=== PATIENT | female | born 1985 | race Caucasian/White ===

== ENCOUNTER 2019-05-30 15:54 | Observation (INO) | payer OTHER, SELFPAY ==
[2019-05-30 15:47] VITALS: BP 111/63; PULSE 84; RESP 18; TEMP 37.3; O2SAT 100
--- NOTE | 2019-05-30 16:15 | OBADM ---
This patient, Sahara Guevara, admitted to the OB room 116 at 1554 per wheelchair from ED for observation for c/o cramping. Patient/family oriented to hospital policies and general routines including ID bracelet, bed and alarms, visiting hours, pain management, procedures, bathroom and other care routines, personal items, smoking policy, room service/diet, and visiting hours. Patient/Family are encouraged to report perceived risks to care and to ask questions if they do not understand what they are told or what they should do.
[2019-05-30 16:44] LABS: Add Urine Microscopic? YES; Appearance Urine Clear (Clear); Bacteria Urine Trace /hpf; Bilirubin Urine Negative (Negative); Blood Urine Negative (Negative); Calcium Oxalate Crystals Urine Present /hpf; Color Urine Yellow (Yellow); Glucose Urine UA Negative (Negative); Ketones Urine Negative (Negative); Leukocyte Esterase Ur Negative LEU/UL (Negative); Mucus Urine Few /lpf; Nitrate Urine Negative (Negative); Protein Urine 1+ mg/dL (Negative); RBC Urine 0-2 /hpf (0-2); Specific Grav Ur 1.024 (1.001-1.035); Squamous Epithelial Cell Urine Few /hpf (Few)
[2019-05-30 16:56] VITALS: BMI 26.5
--- NOTE | 2019-06-07 13:42 | P.PNOB_ITS ---
OB - Triage/Final Diagnosis Evaluation Laboratory results: Laboratory Tests 05/30/19 16:26 Urine Color Yellow Urine Appearance Clear Urine pH 6.0 Ur Specific [place] 1.024 Urine Protein 1+ H Urine Glucose (UA) Negative Urine Ketones Negative Ur Blood (Man) Negative Urine Nitrate Negative Urine Bilirubin Negative Urine Urobilinogen 2.0 H Leukocyte Esterase Rfl Negative Urine RBC 0-2 Urine WBC 10-15 H Ur Squamous Epith Cells Few Calcium Oxalate Crystal Present Urine Bacteria Trace Urine Mucus Few H Final Diagnosis (1) False labor: Code(s): O47.9 - False labor, unspecified Status: Acute
== END 2019-05-30 17:58 | disposition home or self-care (01) ==
PROVIDERS: Admitting Provider Obstetrics & Gynecology; Visit Provider Obstetrics & Gynecology
DX: O47.02 False labor before 37 completed weeks of gestation, second trimester (principal); Z3A.18 18 weeks gestation of pregnancy
CPT/HCPCS: 81001; 87086; 87088; G0378; G0379

== ENCOUNTER 2019-10-09 02:10 | Outpatient (CLI) | payer OTHER, SELFPAY ==
[2019-10-09 03:01] VITALS: BP 98/61; PULSE 81
--- NOTE | 2019-10-09 07:18 | PM.OBTRLD ---
OB - Triage/Final Diagnosis Visit Information Date of evaluation: 10/09/19 Reason for evaluation: threatened labor Evaluation Vital signs: Vital Signs - 24 hr 10/09/19 03:01 Pulse Rate 81 Blood Pressure [Right Arm] 98/61 L
== END 2019-10-09 03:15 | disposition home or self-care (01) ==
LOC: ANHOBOP 02:57 → ANHLDR 08:52
PROVIDERS: PCP Family Medicine; Visit Provider Student in an Organized Health Care Education/Training Program
DX: O42.90 Premature rupture of membranes, unspecified as to length of time between rupture and onset of labor, unspecified weeks of gestation (principal); Z3A.00 Weeks of gestation of pregnancy not specified
CPT/HCPCS: 59025; 99199

== ENCOUNTER 2019-10-16 | Inpatient (IN) | payer OTHER, SELFPAY ==
--- NOTE | 2019-09-18 15:02 | PC.NURSE ---
PATIENT STATES SHE HAS A BICORNATE UTERUS AND BABY IS TRANSVERSE PATIENT STATES DR ONTIVEROS PLANS TO BRING HER IN AT 39 WKS TO ATTEMPT EXTERNAL VERSION ,IF IT WORKS WILL BE INDUCED,IF IT DOES NOT WORK WILL BE A C/S ON THE DAY OF THE EXTERNAL VERSION
[2019-10-16] VITALS (89 sets, daily range): BP systolic 80–116; BP diastolic 35–84; PULSE 63–191; RESP 16–20; TEMP 36.3–37.3; O2SAT 92–100; BMI 31.0
--- NOTE | 2019-10-16 00:53 | LDADM ---
This patient, Sahara Guevara, was admitted to Labor/Delivery/Recovery 109 on 10/16/19 at 00:00. Plans for labor, pain management and were discussed with patient. Patient/family oriented to hospital policies and general routines including ID bracelet, bed and alarms, visiting hours, pain management, procedures, bathroom and other care routines, personal items, smoking policy, room service/diet and guest tray routines, infant security routines, and visiting hours. Patient/Family are encouraged to report perceived risks to care and to ask questions if they do not understand what they are told or what they should do. See OBIX for further documentation.
[2019-10-16 01:34] LABS: Basophils Percent Auto 0.3 % (0.2-1.2); Eosinophils Absolute Auto 0.1 K/mm3 (0-0.3); Eosinophils Percent Auto 0.7 % (0-4.4); Hemoglobin 9.5 g/dL (12.0-15.0); Immature Granulocyte Absolute 0.07 K/mm3 (0.00-0.031); Immature Granulocyte Percent A 0.7 % (0-0.5); Lymphocytes Absolute Auto 1.77 K/mm3 (0.9-3.2); Lymphocytes Percent Auto 18.5 % (18.3-44.2); Mean Corpuscular HGB Conc 32.8 g/dl (32-36); Mean Corpuscular Volume 88.4 fl (80-100); Mean Platelet Volume 10.5 fl (7.4-10.4); Monocytes Absolute Auto 0.8 K/mm3 (0.1-0.6); Monocytes Percent Auto 8.7 % (2.6-8.5); Neutrophils Absolute Auto 6.8 K/mm3 (1.3-6.7); Neutrophils Percent Auto 71.1 % (45.5-73.1); Platelet Count Result 292 k/mm3 (150-375); Red Blood Count 3.28 M/mm3 (4.2-5.4); Red Cell Distribution Width 13.8 % (11.5-14.5); White Blood Count 9.6 K/mm3 (4.5-10.0)
[2019-10-16] MEDS: miSOPROStol 25 MCG TABLET VAGINAL ×2 (01:42→06:32)
--- NOTE | 2019-10-16 07:20 | P.PNAN_ITS ---
Anes - Eval Pre Procedure Procedure: labor epidural Date/Time: 10/16/19 07:20 Preop Diagnosis: labor pain Pre Op Diagnosis: Induction of Labor Patient Data Age: 33 Gender: F Height: 5 ft 5.5 in Weight: 86 kg Last Vital Signs Temp 37.1 C 10/16/19 06:27 Pulse 71 10/16/19 07:15 BP 99/65 L 10/16/19 07:15 Allergies Allergy/AdvReac Type Severity Reaction Status Date / Time No Known Allergies Allergy Verified 10/16/19 01:34 Home Medications Medication Instructions Recorded Confirmed Type PNV cmb#95-ferrous fumarate-FA 1 tablet PO DAILY 05/30/19 10/16/19 History [] Laboratory Tests 10/16/19 10/16/19 10/16/19 01:27 01:27 01:27 WBC 9.6 K/mm3 K/mm3 (4.5-10.0) RBC 3.28 M/mm3 L M/mm3 (4.2-5.4) Hgb 9.5 g/dL L D g/dL (12.0-15.0) Hct 29.0 % L % (37.0-47.0) MCV 88.4 fl fl (80-100) MCH 29.0 pg pg (26-34) MCHC 32.8 g/dl g/dl (32-36) RDW 13.8 % % (11.5-14.5) Plt Count 292 k/mm3 k/mm3 (150-375) MPV 10.5 fl H fl (7.4-10.4) Immature Gran % (Auto) 0.7 % H % (0-0.5) Neut % (Auto) 71.1 % % (45.5-73.1) Lymph % (Auto) 18.5 % % (18.3-44.2) [place] % (Auto) 8.7 % H % (2.6-8.5) Eos % (Auto) 0.7 % % (0-4.4) Baso % (Auto) 0.3 % % (0.2-1.2) Lymph # (Auto) 1.77 K/mm3 K/mm3 (0.9-3.2) [place] # (Auto) 0.8 K/mm3 H K/mm3 (0.1-0.6) Eos # (Auto) 0.1 K/mm3 K/mm3 (0-0.3) Baso # (Auto) 0.0 K/mm3 K/mm3 (0.0-0.1) Abs Immat Gran (auto) 0.07 K/mm3 H K/mm3 (0.00-0.031) Absolute Neuts (auto) 6.8 K/mm3 H K/mm3 (1.3-6.7) Absolute Nucleated RBC 0.0 K/mm3 K/mm3 (0.0-0.012) Nucleated RBC % 0.0 % % (0.0-0.2) RPR Pending Blood Type O Positive Antibody Screen Negative Patient hx anesthesia problems: none Family hx anesthesia problems: none PMFSH Past Medical History Medical History (Updated 06/07/19 @ 13:43 by Augustin Acosta MD) Anxiety Depression Endometriosis History of ectopic Hx of migraines Surgical History Surgical History (Updated 02/23/19 @ 21:39 by Ozzie Angel) No history of previous surgery Family History Family History (Updated 09/18/19 @ 14:35 by Michelle De La O RN) Father Chronic obstructive pulmonary disease Social History Social History Smoking status: Never smoker Substance use: never Gender identity (if verbalized by the patient): Female Spiritual care concerns: No Exam Day of Procedure 10/16/19 07:20
--- NOTE | 2019-10-16 09:10 | PM.IMHP ---
H&P: HPI History of Present Illness Date/Time: 10/16/19 09:10 Chief complaint: Induction of Labor Narrative: 33 y/o at 39 weeks with a bicornuate uterus. Baby was vertex last week, so an induction was scheduled for 39 weeks. However, the patient says the baby doesn't feel vertex anymore. GBS neg. otherwise uncomplicated. Review of Systems Review of Systems: All systems reviewed & are unremarkable except as noted in HPI and below PMFSH Past Medical History Medical History (Updated 10/16/19 @ 09:13 by Augustin Acosta MD) Anxiety Depression Endometriosis History of ectopic Hx of migraines Surgical History Surgical History No history of previous surgery Family History Family History Father Chronic obstructive pulmonary disease Social History Social History Smoking status: Never smoker Substance use: never Gender identity (if verbalized by the patient): Female Spiritual care concerns: No Meds Home Medications and Allergies Home Medications Medication Instructions Recorded Confirmed Type PNV cmb#95-ferrous fumarate-FA 1 tablet PO DAILY 05/30/19 10/16/19 History [] Allergies Allergy/AdvReac Type Severity Reaction Status Date / Time No Known Allergies Allergy Verified 10/16/19 01:34 Vital Signs Vital Signs - 24 hr 10/16/19 01:42 10/16/19 01:45 10/16/19 02:00 Temperature 37.1 C Pulse Rate 76 75 78 Blood Pressure 108/66 101/64 98/65 L 10/16/19 03:00 10/16/19 04:00 10/16/19 06:27 Temperature 37.1 C Pulse Rate 80 100 88 Blood Pressure 100/62 116/64 103/53 L 10/16/19 06:45 10/16/19 07:00 10/16/19 07:15 Temperature Pulse Rate 87 73 71 Blood Pressure 100/70 99/65 L 99/65 L 10/16/19 07:30 10/16/19 07:45 10/16/19 08:00 Temperature Pulse Rate 72 76 79 Blood Pressure 105/63 105/69 91/58 L 10/16/19 08:15 10/16/19 08:31 10/16/19 09:00 Temperature Pulse Rate 80 88 79 Blood Pressure 108/64 96/76 L 110/75 10/16/19 09:03 Temperature 36.6 C Pulse Rate Blood Pressure Exam Const: Orientation/consciousness: patient oriented x3 Other: Well-developed, well-nourished female in no acute distress. Neck: Thyroid: thyroid normal Lymphatic: no lymphadenopathy noted (in neck, axilla or inguinal nodes) Resp: Effort & Inspection: normal respiratory effort Auscultation: clear to auscultation bilaterally Cardio: Rate: regular rate Rhythm: regular rhythm Heart sounds: S1 normal heart sound present and S2 normal heart sound present GI: Other: ABD: Soft, nontender, nondistended. Gravid. NST reactive. [place]: irregular contractions. Bedside ultrasound shows nonvertex presentation. Ryan breech vs oblique presentation. : General: Yes no CVA tenderness Other: Cervix closed per RN exam. Back/Spine/Pelvis: Back: no CVA tenderness Skin: General skin exam: normal color and no rashes or lesions noted Neuro: General: patient oriented x3 Extrem: Other: Extremities: nontender with no edema Psych: Mental Status: mental status grossly normal Affect: normal affect H&P: Results Labs Labs: Short CBC 10/16/19 Range/Units 01:27 WBC 9.6 (4.5-10.0) K/mm3 Hgb 9.5 L D (12.0-15.0) g/dL Hct 29.0 L (37.0-47.0) % Plt Count 292 (150-375) k/mm3 Assessment and Plan Assessment and plan (1) Breech presentation: Code(s): O32.1XX0 - Maternal care for breech presentation, not applicable or unspecified Status: Acute Assessment and Plan: A: IUP at 39 weeks. Breech presentation Bicornuate uterus P: I offered her expectant management versus primary . She understands risks of surgery to include risks of anesthesia, risks of pain, infection, bleeding, blood products, thromboembolic phenomena and damage to adjacent
[2019-10-16 09:51] LABS: Rapid Plasma Reagin Non-Reactive (NonReactive)
--- NOTE | 2019-10-16 10:01 | WPDANESEPPF ---
Anes - Initial Pre Proc Eval Procedure: Operation Date: 10/16/19 12:00 Proposed Procedures p Section - Huseyin Naranjo MD Date/Time: 10/16/19 10:01 Surgeon: Huseyin Naranjo MD Pre Op Diagnosis: Induction of Labor Patient Data Age: 33 Gender: F Height: 1.66 m Weight: 86 kg Last Vital Signs Temp 36.6 C 10/16/19 09:03 Pulse 79 10/16/19 09:00 BP 110/75 10/16/19 09:00 Allergies Allergy/AdvReac Type Severity Reaction Status Date / Time No Known Allergies Allergy Verified 10/16/19 01:34 Home Medications Medication Instructions Recorded Confirmed Type PNV cmb#95-ferrous fumarate-FA 1 tablet PO DAILY 05/30/19 10/16/19 History [] Laboratory Tests 10/16/19 10/16/19 10/16/19 01:27 01:27 01:27 WBC 9.6 K/mm3 K/mm3 (4.5-10.0) RBC 3.28 M/mm3 L M/mm3 (4.2-5.4) Hgb 9.5 g/dL L D g/dL (12.0-15.0) Hct 29.0 % L % (37.0-47.0) MCV 88.4 fl fl (80-100) MCH 29.0 pg pg (26-34) MCHC 32.8 g/dl g/dl (32-36) RDW 13.8 % % (11.5-14.5) Plt Count 292 k/mm3 k/mm3 (150-375) MPV 10.5 fl H fl (7.4-10.4) Immature Gran % (Auto) 0.7 % H % (0-0.5) Neut % (Auto) 71.1 % % (45.5-73.1) Lymph % (Auto) 18.5 % % (18.3-44.2) [place] % (Auto) 8.7 % H % (2.6-8.5) Eos % (Auto) 0.7 % % (0-4.4) Baso % (Auto) 0.3 % % (0.2-1.2) Lymph # (Auto) 1.77 K/mm3 K/mm3 (0.9-3.2) [place] # (Auto) 0.8 K/mm3 H K/mm3 (0.1-0.6) Eos # (Auto) 0.1 K/mm3 K/mm3 (0-0.3) Baso # (Auto) 0.0 K/mm3 K/mm3 (0.0-0.1) Abs Immat Gran (auto) 0.07 K/mm3 H K/mm3 (0.00-0.031) Absolute Neuts (auto) 6.8 K/mm3 H K/mm3 (1.3-6.7) Absolute Nucleated RBC 0.0 K/mm3 K/mm3 (0.0-0.012) Nucleated RBC % 0.0 % % (0.0-0.2) RPR Non-reactive (NonReactive) Blood Type O Positive Antibody Screen Negative Patient hx anesthesia problems: none Family hx anesthesia problems: none [facility] Past Medical History Medical History (Updated 10/16/19 @ 09:13 by Augustin Acosta MD) Anxiety Depression Endometriosis History of ectopic Hx of migraines Surgical History Surgical History No history of previous surgery Family History Family History Father Chronic obstructive pulmonary disease Social History Social History Smoking status: Never smoker Substance use: never Gender identity (if verbalized by the patient): Female Spiritual care concerns: No Anes - Eval Final PreProcedure Day of Procedure 10/16/19 10:01 Patient weight: obese Heart: regular rate and rhythm Lungs: clear to auscultation and normal air movement Airway: Mallampati scale class II Neurological: alert and oriented Last oral intake: >/= 8 hours ASA classification: II Emergent: no Anesthetic plan: proceed Anesthesia type and monitoring: regional spinal and standard monitoring Informed Consent: The patient's anesthetic plan and its attendant risks and benefits were discussed with the patient/family/POA. Questions were solicited and answers provided to the satisfaction of the patient/family/POA.
[2019-10-16] MEDS: LACTATED RINGERS 1,000 ML 999 ML IV CONT ×2 (10:30→14:22)
[2019-10-16] MEDS: KETOROLAC 30 MG/ML VIAL (*BKC) IV PUSH (11:55)
--- NOTE | 2019-10-16 12:08 | PM.PROC ---
Procedure Note - Detailed Date of procedure: 10/16/19 Pre-op diagnosis: Induction of Labor Breech presentation Post-op diagnosis: same Procedure performed: primary low transverse section Description of procedure: The patient was taken to the operating room where epidural anesthesia was found to be adequate. She was then prepped and draped in the usual sterile fashion in the dorsal supine position with a leftward tilt. A Pfannenstiel skin incision was then made with the scalpel and carried through to the underlying layer of fascia. The fascia was then incised in the midline and the incision extended laterally with the Garcia scissors. The superior aspect of the fascia was then grasped with the Britta clamps, elevated, and the underlying rectus muscles dissected off bluntly and sharply. Attention was then turned to the inferior aspect of this incision which, in a similar fashion, was grasped, tented up with the Britta clamps, and the rectus muscles dissected off both bluntly and sharply. The rectus muscles were then in the midline, and the peritoneum identified, tented up, and entered sharply with the Metzenbaum scissors. The peritoneal incision was then extended superiorly and inferiorly with good visualization of the bladder. The bladder blade was then inserted and the vesicouterine peritoneum identified, grasped with the pick-ups and entered sharply with the Metzenbaum scissors. This incision was then extended laterally and the bladder flap created digitally. The bladder blade was then reinserted and the lower uterine segment incised in a low, transverse fashion with the scalpel. The uterine incision was then extended laterally with the bandage scissors. At the time of hysterotomy, a arm extended through. The arm was reduced back into the uterus. A leg was then identified, grasped, and brought through the hysterotomy. The buttocks was then delivered through the hysterotomy. The remainder of the fetus was delivered atramatically. The cord was clamped and cut. The infant was handed off to the waiting pediatricians (staff). Cord gasses were sent. The placenta was then removed manually, the uterus exteriorized, and cleared of all clots and debris. The uterine incision was repaired with 0 monocryl in a running, locking fashion. A second imbricating layer of 0-monocryl was then performed. The uterus was returned to the abdomen. The uterus was then reinspected to ensure hemostasis as were all subfascial tissues. The peritoneum was re-approximated with 3-vicryl in a running fashion. The fascia was reapproximated with 0 vicryl in a running fashion. The subcutaneous tissue was reapproximated using 3-0 Vicryl in a series of interrupted sutures. The skin was closed with 4-0 vicryl. The patient tolerated the procedure well. Sponge, lap and needle counts were correct times three. The patient was taken to the recovery room in stable condition. Anesthesia: spinal Surgeon: Huseyin Naranjo MD Estimated blood loss (mL): 1,300 IV fluids (mL): 1,000 Urine output (mL): 150 Drains: No Packing: No Pathology: none sent Complications: No immediate complications Condition: stable Disposition: floor ( )
[2019-10-16] MEDS: ONDANSETRON INJ 4 MG/2 ML VIAL IV PUSH (12:35)
[2019-10-16] MEDS: LACTATED RINGERS 1,000 ML 125 ML IV CONT (12:45)
[2019-10-16] MEDS: MIDAZOLAM HCL 2 MG/2 ML VIAL IV PUSH (12:49)
[2019-10-16] MEDS: OXYTOCIN 30 UNITS/NS 500 ML 30 UNITS/500 ML BAG 125 UNITS IV CONT (12:58)
--- NOTE | 2019-10-16 14:16 | PC.NURSE ---
Dr. Naranjo notified regarding recovery urine output of 25 ml over 2 hours. Orders received and to perform bladder scan.
[2019-10-16 14:25] LABS: Hemoglobin 6.7 g/dL (12.0-15.0)
[2019-10-16 14:26] LABS: Hematocrit 20.7 % (37.0-47.0)
--- NOTE | 2019-10-16 14:51 | PC.NURSE ---
Patient transferred to post room #284 via ( stretcher ). Support person present. Oriented to unit, room, information board, rooming in, admission packet and security measures. Patient verbalizes understanding.
--- NOTE | 2019-10-16 15:12 | PC.NURSE ---
Dr. Naranjo at bedside at 1445 discussing POC for blood transfusion. Pt verbalizes understanding and accepts POC.
[2019-10-16] MEDS: SODIUM CHLORIDE 0.9% IV 1,000 ML 125 ML (15:20)
[2019-10-16] MEDS: ACETAMINOPHEN 325 MG TABLET 650 MG PO (20:37)
[2019-10-17] MEDS: KCL 20 MEQ/D5/0.45% SOD CHL 1,000 ML 125 ML IV CONT (02:19)
[2019-10-17 03:11] LABS: Hematocrit 29.2 % (37.0-47.0); Hemoglobin 9.6 g/dL (12.0-15.0)
[2019-10-17 04:16] VITALS: BP 88/55; PULSE 90; RESP 18; TEMP 37.1; O2SAT 95
[2019-10-17 05:54] LABS: Basophils Percent Auto 0.3 % (0.2-1.2); Eosinophils Percent Auto 0.3 % (0-4.4); Hematocrit 29.1 % (37.0-47.0); Hemoglobin 9.6 g/dL (12.0-15.0); Immature Granulocyte Absolute 0.08 K/mm3 (0.00-0.031); Immature Granulocyte Percent A 0.7 % (0-0.5); Lymphocytes Absolute Auto 0.99 K/mm3 (0.9-3.2); Lymphocytes Percent Auto 8.4 % (18.3-44.2); Mean Corpuscular Hemoglobin 28.8 pg (26-34); Mean Corpuscular Volume 87.4 fl (80-100); Mean Platelet Volume 10.1 fl (7.4-10.4); Monocytes Absolute Auto 0.9 K/mm3 (0.1-0.6); Monocytes Percent Auto 7.5 % (2.6-8.5); Neutrophils Absolute Auto 9.7 K/mm3 (1.3-6.7); Neutrophils Percent Auto 82.8 % (45.5-73.1); Platelet Count Result 208 k/mm3 (150-375); Red Blood Count 3.33 M/mm3 (4.2-5.4); Red Cell Distribution Width 14.4 % (11.5-14.5); White Blood Count 11.8 K/mm3 (4.5-10.0)
--- NOTE | 2019-10-17 07:29 | PM.OBPNVD ---
OB - PN: Subj Subjective Date/time seen: 10/17/19 07:29 Interval history: Patient doing well this AM. she has note yet ambulated our of bed. She is tolerating her current diet. She reports adequate pain control. Her bleeding is normal and she reports normal lochia. She denies fever, chills, N/V. She has not yet passed flatus. Patient comments: no complaints and pain well controlled; no flatus present OB - PN: Obj Data Labs CBC & Chem 7: 10/17/19 05:47 Labs: Laboratory Results - last 24 hr 10/16/19 10/16/19 10/16/19 01:27 01:27 14:00 WBC RBC Hgb 6.7 L* Hct 20.7 L* MCV MCH MCHC RDW Plt Count MPV Immature Gran % (Auto) Neut % (Auto) Lymph % (Auto) [place] % (Auto) Eos % (Auto) Baso % (Auto) Lymph # (Auto) [place] # (Auto) Eos # (Auto) Baso # (Auto) Abs Immat Gran (auto) Absolute Neuts (auto) Absolute Nucleated RBC Nucleated RBC % RPR Non-reactive Blood Type O Positive Antibody Screen Negative Crossmatch See Detail 10/17/19 10/17/19 03:05 05:47 WBC 11.8 H RBC 3.33 L Hgb 9.6 L 9.6 L Hct 29.2 L 29.1 L MCV 87.4 MCH 28.8 MCHC 33.0 RDW 14.4 Plt Count 208 MPV 10.1 Immature Gran % (Auto) 0.7 H Neut % (Auto) 82.8 H Lymph % (Auto) 8.4 L [place] % (Auto) 7.5 Eos % (Auto) 0.3 Baso % (Auto) 0.3 Lymph # (Auto) 0.99 [place] # (Auto) 0.9 H Eos # (Auto) 0.0 Baso # (Auto) 0.0 Abs Immat Gran (auto) 0.08 H Absolute Neuts (auto) 9.7 H Absolute Nucleated RBC 0.0 Nucleated RBC % 0.0 RPR Blood Type Antibody Screen Crossmatch OB - PN A/P Assessment and Plan (1) Anemia: Code(s): D64.9 - Anemia, unspecified Status: Acute Assessment and Plan: Hgb 6.1 after yesterday secondary to acute blood loss s/p 2u pRBC H/H stable at 9.629 VSS, afebrile will start iron BID Plan day: 1 Plan: routine care Comments: patient doing well this AM will plan to D/C [place] once ambulating advance diet as tolerated H/H stable continue routine PP care Time Spent With Patient Time: Total time spent is greater than 50% in coordination of care (as documented) at patient's floor/unit and/or counseling patient: Time with patient: less than 15 minutes Review of Systems Constitutional: Constitutional: Reports no additional constitutional complaints Cardiovascular: Cardiovascular: Reports no additional cardiovascular complaints Respiratory: Respiratory: Reports no additional respiratory complaints Gastrointestinal: Gastrointestinal: Reports no additional gastrointestinal complaints Genitourinary: Genitourinary: Reports no additional female genitourinary complaints Exam Const: General: comfortable and no acute distress Resp: Effort & Inspection: normal respiratory effort Auscultation: clear to auscultation bilaterally Cardio: Rate: regular rate GI: GI Palp: Yes Soft to palpation and Yes Tenderness to palpation present (GI) (appropriately tender around incision ) Auscultation: normal bowel sounds Other: fundus firm and below umbilicus Incision C/D/I Urinary Catheter: Urinary Catheter: urine clear Psych: Appearance: grossly normal Mental Status: mental status grossly normal Affect: normal affect
[2019-10-17 08:00] VITALS: BP 92/55; PULSE 81; RESP 18; TEMP 37.2; O2SAT 96
--- NOTE | 2019-10-17 08:03 | WPDANLDNPN2 ---
Anes-Prog Note L&D-Neuraxial Date/Time: 10/17/19 08:03 Neuraxial medications: intrathecal PF morphine Opiod-related complaints: none Patient feedback: Patient satisfied with post-operative pain management.
--- NOTE | 2019-10-17 08:03 | WPDANLDPN2 ---
Anes-Prog Note L&D Date/Time: 10/17/19 08:03 Comfortable throughout: section Neuraxial method: spinal Epidural/Spinal procedure site: clean & non-tender Neuro status: Neuro function grossly intact. Cardiovascular status: normal Respiratory status: normal Airway patency: baseline Mental status: baseline Post-Op hydration status: normal Vital Signs: Last Vital Signs Temp 37.1 C 10/17/19 04:16 Pulse 90 10/17/19 04:16 Resp 18 10/17/19 04:16 BP 88/55 L 10/17/19 04:16 Pulse Ox 95 10/17/19 04:16 I/O: Intake & Output 10/16/19 10/17/19 10/17/19 23:59 07:59 15:59 Intake Total 620 300 Output Total 1250 625 Balance -630 -325 Post-procedural complaints: none Patient feedback: Patient satisfied with anesthetic care.
--- NOTE | 2019-10-17 08:10 | PC.NURSE ---
Consulted with patient, mother reports she has been using a nipple shield for most feedings. will latch and not suckle or is on and off several times within the feeding. Mother has supplemented during the night. Discussed nipple shield precautions and possible complications. Instructions given on application and cleaning of shield. Patient able to return demonstration on proper application of shield. Discussed the need to initiate pumping if infant continues to nurse with the shield. Patient verbalizes understanding. Reviewed feeding cues, frequencies, duration of feedings, feeding elimination flow sheet, and signs of adequate intake. Demonstrated stimulation techniques to wake for feeding. Assisted with infant to breast. Reviewed positioning/alignment in cross cradle, holding breast in U hold and guided asymmetrical latch on. Discussed rational for each. Infant was able to latch correctly. Infant nursed weakly for a few short bursts with long pausing and falling to sleep. Advised to stimulate to keep awake and nursing effectively for increase intake and to assist maintaining deep latch. e Reviewed signs of a correct latch, effective nursing and suck swallow ratio. Discussed effective vs ineffective nursing. Nipple care reviewed. Mother understands infant is not nursing effectively and supplementation will be initiated after each ineffective feeding. Parents choose to use Enfamil, advised to supplement 15mls. Instructed mother to call out for RN assistance if she is unable to latch infant for feeding or she has discomfort with nursing. Instructed feeding should be initiated three hours from start of last feeding or if feeding cues are noted before. Mother voiced understanding of information shared.
[2019-10-17] MEDS: ACETAMINOPHEN 325 MG TABLET 650 MG PO (08:51)
[2019-10-17] MEDS: POLYSACCHARIDE IRON COMPLEX 150 MG CAPSULE PO ×2 (08:51→16:49)
[2019-10-17] MEDS: DOCUSATE SODIUM 100 MG CAPSULE PO ×2 (08:52→16:50)
[2019-10-17] MEDS: MULTIVIT/MIN/PREN/FOL AC/IRON TABLET 1 TAB PO (08:52)
--- NOTE | 2019-10-17 11:30 | PC.NURSE ---
Mother called out for assist with feeding. Reviewed feeding cues, frequencies, duration of feedings, feeding elimination flow sheet, and signs of adequate intake. Demonstrated stimulation techniques to wake infant for feeding. Assisted with to breast. Reviewed positioning/alignment in cross cradle, holding breast in U hold and guided asymmetrical latch on. Discussed rational for each. was able to latch correctly. nursed eagerly for short bursts needing stimulation to keep nursing. Infant responded with bursts of eager nursing. Advised to stimulate to keep awake and nursing effectively for increase intake and to assist maintaining deep latch. Mother will work with for 15-20minutes then supplement.
[2019-10-17 12:50] VITALS: BP 92/57; PULSE 73
[2019-10-17 13:08] VITALS: BP 98/55; PULSE 77; RESP 20; O2SAT 97
--- NOTE | 2019-10-17 14:45 | PC.NURSE ---
Breast pump provided due to nipple shield use/ineffective feeding. Instructions given on breast pump care and usage, pumping schedule, nipple care, and collection and storage of breast milk. Encouraged [id number], breast massage and manual expression to stimulate supply. Assessed patient for correct flange size, placement and draw. Patient verbalizes and demonstrates understanding of instructions.
[2019-10-17] MEDS: IBUPROFEN 600 MG TABLET PO (16:50)
[2019-10-17 20:10] VITALS: BP 92/56; PULSE 87; RESP 20; TEMP 36.8; O2SAT 97
[2019-10-17] MEDS: SIMETHICONE 80 MG TAB.CHEW PO (21:44)
[2019-10-18] MEDS: IBUPROFEN 600 MG TABLET PO ×3 (00:18→17:09)
--- NOTE | 2019-10-18 07:17 | PM.OBPNVD ---
OB - PN: Subj Subjective Date/time seen: 10/18/19 07:17 Interval history: Patient doing well this AM. she is ambulating without difficulty. She is tolerating her current diet. She reports some abdominal pain but has not taken pain meds since 2200 last night. Her bleeding is normal and she reports normal lochia. She denies fever, chills, N/V. She has passed flatus. Patient comments: no complaints, pain well controlled, tolerating diet and flatus present OB - PN: Obj Data Labs CBC & Chem 7: 10/17/19 05:47 OB - PN A/P Plan day: 2 Plan: routine care Comments: patient doing well encourage scheduled pain meds H/H stable afebrile, VSS incision C/D/I voiding spontaneously continue routine post op care will d/c home tomorrow Time Spent With Patient Time: Total time spent is greater than 50% in coordination of care (as documented) at patient's floor/unit and/or counseling patient: Time with patient: less than 15 minutes Review of Systems Constitutional: Constitutional: Reports no additional constitutional complaints Cardiovascular: Cardiovascular: Reports no additional cardiovascular complaints Respiratory: Respiratory: Reports no additional respiratory complaints Gastrointestinal: Gastrointestinal: Reports no additional gastrointestinal complaints Genitourinary: Genitourinary: Reports no additional female genitourinary complaints Exam Const: General: comfortable and no acute distress Resp: Effort & Inspection: normal respiratory effort Auscultation: clear to auscultation bilaterally Cardio: Rate: regular rate GI: GI Palp: Yes Soft to palpation, Yes Tenderness to palpation present (GI) (around incision ) and No Guarding due to palpation present (GI) Auscultation: normal bowel sounds Other: incision C/D/I, covered with Dermabond Psych: Appearance: grossly normal Mental Status: mental status grossly normal Affect: normal affect
[2019-10-18] MEDS: SIMETHICONE 80 MG TAB.CHEW PO ×2 (07:19→17:08)
[2019-10-18] MEDS: MULTIVIT/MIN/PREN/FOL AC/IRON TABLET 1 TAB PO (07:19)
[2019-10-18] MEDS: DOCUSATE SODIUM 100 MG CAPSULE PO ×2 (07:19→17:10)
[2019-10-18] MEDS: POLYSACCHARIDE IRON COMPLEX 150 MG CAPSULE PO ×2 (07:20→17:10)
--- NOTE | 2019-10-18 08:00 | PC.NURSE ---
PT introductions made and plan of care discussed per post op c section, pain management, breast feeding, daily care activities. PT verbalized understanding of such care.
[2019-10-18 09:05] VITALS: BP 99/54; PULSE 75; RESP 18; TEMP 36.4; O2SAT 98
--- NOTE | 2019-10-18 10:55 | PC.NURSE ---
Consult with pt., mother reports she is attempting to breast most feedings and will supplement EBM/formula. Infant is at breast without nipple shield, infant has a deep latch with minimal suckling noted. Reviewed positioning/alignment, holding breast and asymmetrical latch on. Infant nursed sleepily with short bursts of suckling. eagerly, with Reviewed signs of a correct latch, effective nursing and suck swallow ratio. Reviewed effective vs ineffective feeding. Mother will supplement after each feeding and then pump. Mother states she is pumping without difficulties or discomfort.
--- NOTE | 2019-10-18 10:57 | WPDANLDPN2 ---
Anes-Prog Note L&D Date/Time: 10/18/19 10:57 Comfortable throughout: section Neuraxial method: spinal Epidural/Spinal procedure site: clean & non-tender Neuro status: Neuro function grossly intact. Cardiovascular status: normal Respiratory status: normal Airway patency: baseline Mental status: baseline Post-Op hydration status: normal Vital Signs: Last Vital Signs Temp 36.4 C 10/18/19 09:05 Pulse 75 10/18/19 09:05 Resp 18 10/18/19 09:05 BP 99/54 L 10/18/19 09:05 Pulse Ox 98 10/18/19 09:05 I/O: Intake & Output 10/17/19 10/18/19 10/18/19 23:59 07:59 15:59 Intake Total 300 240 Balance 300 240 Post-procedural complaints: none Patient feedback: Patient satisfied with anesthetic care.
--- NOTE | 2019-10-18 10:58 | WPDANLDNPN2 ---
Anes-Prog Note L&D-Neuraxial Date/Time: 10/18/19 10:58 Neuraxial medications: intrathecal PF morphine Opiod-related complaints: none Patient feedback: Patient satisfied with post-operative pain management.
[2019-10-18 20:15] VITALS: BP 95/60; PULSE 71; RESP 18; TEMP 36.6; O2SAT 97
[2019-10-19] MEDS: IBUPROFEN 600 MG TABLET PO ×2 (00:16→08:33)
--- NOTE | 2019-10-19 07:00 | PC.NURSE ---
PT introductions made and plan of care discussed per post , pain management, breast feeding, pumping and bottle feeding, daily care activities and pending discharge to home. PT verbalized understanding of such care.
--- NOTE | 2019-10-19 07:23 | PM.OBDSVD ---
DS: Admitting Diagnosis Admitting Diagnosis Admitting Diagnosis: Induction of Labor OB - DS: Summary OB Procedures : None OB Procedures Intrapartum: OB Procedures: : None Peripartum Data Infant Delivery Method: Section Procedures: Procedures Operation Date: 10/16/19 12:00 Actual Procedures Side Surgeon p Section Huseyin Naranjo MD complications: none Status at Discharge Functional status at discharge: independent ambulation Overall status at discharge: patient is progressing back to baseline Time Spent with Patient Time attestation: Total time spent providing and/or coordinating discharge services: Time spent: Less than 30 minutes Exam Const: General: comfortable and no acute distress Resp: Effort & Inspection: normal respiratory effort Auscultation: clear to auscultation bilaterally Cardio: Rate: regular rate GI: Inspection: non-distended GI Palp: Yes Soft to palpation, No Firmness to palpation present (GI), Yes Tenderness to palpation present (GI) (mild tenderness over incision ) and No Guarding due to palpation present (GI) Auscultation: normal bowel sounds Psych: Appearance: grossly normal Mental Status: mental status grossly normal Discharge Plan Discharge Discharging Clinician: Huseyin Naranjo Patient Disposition: Home, Self-Care Activity: as tolerated and pelvic rest Diet: regular Discharge Instructions: Education: Mom and Baby Guide Given to: Mother Follow-Up: Call your delivering provider's office for an appointment to be seen in: 1 Week Mom and baby should come to the [facility] for the follow-up appointment. Appointment Date/Time: October 20, 2019 at 11:00 am What to expect at your follow-up visit: Blood Pressure Check Call [phone] if you are unable to keep your appointment time. BREAST CARE: * Wear a snug supportive bra. * For engorgement discomfort: Breast Feeding: * Apply warm moist washcloths * Express milk as needed to relieve engorgement * Wear loose clothing Bottle Feeding: * May apply ice packs * For sore nipples: * Identify correct latch-on * Apply warm moist washcloths before and after nursing * Air dry nipples after nursing * May apply Lansinoh cream to nipples ABDOMINAL INCISION: (if applicable) * Allow incision to air dry * Do NOT use lotions for powders on your incision * When showering, allow soap and water to run over the incision, but do not wash incision PERINEAL CARE: * Until bleeding stops, use your rosy bottle after urinating * Change your pad frequently throughout the day * You may take sitz baths several times a day (fill your bathtub with warm water and soak for 20 minutes.) Do NOT bathe in the water * No tub baths until seen by your physician - You may shower ACTIVITY: * Rest as much as possible. * Do not exercise or lift anything heavier than your baby (such as laundry or other children.) * Avoid stairs or driving as much as possible. * Do not put anything into the vagina. No douching, tampons, or sexual activity until seen by physician. NOTIFY PHYSICIAN IF YOU HAVE ANY QUESTIONS OR IF ANY OF THE FOLLOWING SYMPTOMS OCCUR: * If your incision becomes red, swollen, or more painful than what you have experienced in the hospital. * If your vaginal bleeding becomes foul smelling. * If your vaginal bleeding becomes more heavy than a period or if your bleeding changes from pink to bright red. However, you may pass an occasional walnut-sized clot once or twice for the first week . * If you experience a sharp, shooting pain in you calves. * If you discover a hard, reddened area on your breast or if you experience flu-like symptoms. * IF you have a fever of 100.4 or greater DIET: * Eat regular, well-balanced meals. * Drink plenty of fluids daily. I
[2019-10-19 07:50] VITALS: BP 109/62; PULSE 80; RESP 16; TEMP 37.1; O2SAT 100
--- NOTE | 2019-10-19 08:30 | PC.NURSE ---
Patient viewed the discharge video Mother & Baby Care, The First Two Weeks . Patient was given the opportunity and encouraged to ask questions. Patient verbalized understanding of information shared and has been given the mother/baby guide for home reference.
[2019-10-19] MEDS: DOCUSATE SODIUM 100 MG CAPSULE PO (08:32)
[2019-10-19] MEDS: MULTIVIT/MIN/PREN/FOL AC/IRON TABLET 1 TAB PO (08:32)
[2019-10-19] MEDS: POLYSACCHARIDE IRON COMPLEX 150 MG CAPSULE PO (08:32)
[2019-10-19] MEDS: SIMETHICONE 80 MG TAB.CHEW PO (08:33)
[2019-10-19 08:36] VITALS: PULSE 80; RESP 16; O2SAT 100
--- NOTE | 2019-10-19 10:45 | PC.NURSE ---
PT received discharge instructions per protocol and verbalized understanding of such caer.
--- NOTE | 2019-10-19 11:30 | PC.NURSE ---
Mother continues to attempt to breast most feedings. Mother states she will eagerly latch at times and sleepy for other feedings. Mother is supplementing every feeding. She denies any nipple discomfort, is feeding as required and waking infant to feed if needed. is improving with eagerness and suckling in the past 24 hours, and is currently meeting outcomes for weight, output, jaundice and feeding frequencies. Mother states she feels confident to continue current feeding plan at home. Reviewed transition to breast milk, signs of adequate intake, and engorgement/relief. Instructed to call ICP if intake/output less than required. Reviewed regular medications mother is taking. Information provided per Holly. Reviewed community resources on the [facility] website and in the Mom/Baby guide. Information on outpatient services provided. Mother has no further questions at this time.
--- NOTE | 2019-10-19 11:42 | PC.NURSE ---
PT discharged to home ambulatory accompanied by significant other and to waiting car. follow up appts confirmed
[2019-10-20 11:00] VITALS: BP 105/74; PULSE 82; RESP 20; O2SAT 100
== END 2019-10-19 11:42 | disposition home or self-care (01) | DRG 787 ==
LOC: ANHLDR 00:09 → ANHOB2 14:54
PROVIDERS: Admitting Provider Student in an Organized Health Care Education/Training Program; PCP Family Medicine; Visit Provider Student in an Organized Health Care Education/Training Program
PROC: 10D00Z1 Extraction of Products of Conception, Low, Open Approach (ICD-10-PCS; CPT 59514; principal; 2019-10-16 12:00)
DX: O32.1XX0 Maternal care for breech presentation, not applicable or unspecified (principal); D62 Acute posthemorrhagic anemia; Z37.0 Single live birth; Z3A.39 39 weeks gestation of pregnancy; O99.344 Other mental disorders complicating childbirth; F41.8 Other specified anxiety disorders; O99.89 Other specified diseases and conditions complicating pregnancy, childbirth and the puerperium; N80.9 Endometriosis, unspecified; O34.03 Maternal care for unspecified congenital malformation of uterus, third trimester; Q51.3 Bicornate uterus; O99.214 Obesity complicating childbirth; E66.9 Obesity, unspecified; O90.81 Anemia of the puerperium
CPT/HCPCS: 36415; 36430; 85014; 85018; 85025; 86592; 86850; 86900; 86901; 86923; A9270; J0131; J1885; J2250; J2274; J2370; J2405; J2590; J3480; J7030; J7120; P9016

== ENCOUNTER 2020-09-24 11:52 | Emergency (ER) | payer OTHER, SELFPAY ==
[2020-09-24 12:05] VITALS: BP 108/67; PULSE 79; RESP 16; TEMP 36.7; O2SAT 100
--- NOTE | 2020-09-24 13:03 | ED.BACK ---
HPI - Back Pain/Injury General Chief Complaint: Back Pain/Injury Stated Complaint: Lower Back Pain History of Present Illness HPI Narrative: This is a 34 comes in complaining of a sudden onset lower back pain that started few hours ago. Patient states that she became nauseated but the pain has persisted she is unable to lay down due to severe pain she has had a recent urinary tract infection when she was treated for with Cipro from September 11 for 5 consecutive days states that she was feeling better. Patient denies any fever or diarrhea right side lower back pain denies any painful urination Related Data Home Medications Medication Instructions Recorded Confirmed ergocalciferol (vitamin D2) 09/24/20 phentermine mg 09/24/20 09/24/20 Allergies Allergy/AdvReac Type Severity Reaction Status Date / Time No Known Allergies Allergy Verified 09/24/20 12:10 Review of Systems Review of Systems: CONSTITUTIONAL: Denies fever, chills, or sweats. EYES: Denies visual changes, redness, or discharge. ENT: Denies rhinorrhea, congestion, sore throat, or otalgia. CARDIOVASCULAR:Denies chest pain, palpitations, or edema. RESPIRATORY: Denies cough or dyspnea. GASTROINTESTINAL: Denies abdominal pain, nausea, vomiting, or diarrhea. GENITOURINARY: Denies dysuria or hematuria. SKIN:[Denies rash or itching. MUSCULOSKELETAL: Reports back pain, joint pain, denies or myalgia. NEUROLOGIC: Denies headache, numbness, or weakness. PSYCHIATRIC:Denies anxiety or depression [facility] Past Medical History Medical History (Updated 09/24/20 @ 13:50 by Jayme Scott NP) Anxiety Depression Endometriosis History of ectopic Hx of migraines Surgical History Surgical History No history of previous surgery Family History Family History Father Chronic obstructive pulmonary disease Social History Social History Smoking status: Never smoker Substance use: never Gender identity (if verbalized by the patient): Female Spiritual care concerns: No Comments At time as signature, I have reviewed and agree with nursing past medical, social, surgical and family history. Please see nursing chart for further information. There is no relevant family history pertinent to the presenting complaint. Exam Narrative: GENERAL:Well-appearing, well-nourished, and in tearful acute distress. HEAD:Normocephalic, atraumatic. EYES: PERRLA and EOMI. ENT: Nares clear, no rhinorrhea or epistaxis. Mucous membranes moist. NECK: Supple. CHEST: Clear to auscultation. No respiratory distress. HEART: Regular rate and rhythm. Normal peripheral pulses. ABDOMEN: Soft, nontender, nondistended, normal active bowel sounds. Severe back pain inability to lay flat d/t pain painful painful back tenderness right side EXTREMITIES: Normal range of motion. No edema. SKIN: Warm, dry, no rash. NEURO: No focal deficits. Alert and oriented x3. Course RO[employer]PECT[employer]/PA Physician Supervision Urine positive for blood everything else normal Vital Signs Vital signs: Vital Signs Temperature 98.1 F 09/24/20 12:05 Pulse Rate 79 09/24/20 12:05 Respiratory Rate 16 09/24/20 12:05 Blood Pressure 108/67 09/24/20 12:05 Pulse Oximetry 100 09/24/20 12:05 Temperature 98.1 F 09/24/20 12:05 Pulse Rate 79 09/24/20 12:05 Respiratory Rate 16 09/24/20 12:05 Blood Pressure 108/67 09/24/20 12:05 Pulse Oximetry 100 09/24/20 12:05 Reviewed Transfer Transfered to: [facility] Transfer rationale: Patient selected to take her own car Accepting physician: JUAN Corbin, Dr. Reddy MDM - Back Pain/Injury MDM Narrative Medical decision making narrative: Discussed with patient history of kidney stones which were negative. Inability to do CT scan or any labs to rule out any other conditions at this time the nece
== END 2020-09-24 13:30 | disposition short-term general hospital (02) ==
LOC: EXPCOLL 11:55
PROVIDERS: Emergency Provider Nurse Practitioner Family; PCP Family Medicine
DX: R11.0 Nausea (principal); M54.5 Low back pain; N80.9 Endometriosis, unspecified
CPT/HCPCS: 81003; 99212; G0463

== ENCOUNTER 2020-09-24 13:44 | Emergency (ER) | payer OTHER, SELFPAY ==
--- NOTE | ~2020-09-24 | CT_ITS ---
EXAMINATION: CT abdomen pelvis wo con DATE: 09/24/2020 15:14 INDICATION: Low back pain TECHNIQUE: Computed tomography (CT) of the abdomen and pelvis was performed without intravenous contr ast. The dose-length product (DLP) was 386.90 mGy-cm. Automated exposure control and iterative recons truction technique were employed. COMPARISON: None FINDINGS: The lung bases are clear. The heart size is normal. The liver, spleen, pancreas, gallbladde r, and adrenal glands are normal. There are nonobstructing stones of the right kidney measuring up to 3 mm. A 3 mm nonobstructing stone is present in the left kidney. No stones are present in the ureter s or bladder. There is no hydronephrosis or hydroureter. The appendix is normal. No pathologically en larged abdominal or pelvic lymph nodes are identified. There is no free intraperitoneal gas or eviden ce of bowel obstruction. There is a fat-containing umbilical hernia. Mild lumbar spondylosis is noted . IMPRESSION: 1. No CT correlate for the patient's symptoms. 2. Bilateral nonobstructing nephrolithiasis. Reviewed, dictated and finalized at location A.
[2020-09-24 13:52] VITALS: BP 114/75; PULSE 78; RESP 18; TEMP 37.1; O2SAT 99
[2020-09-24 14:13] LABS: Basophils Percent Auto 0.7 % (0.2-1.2); Eosinophils Absolute Auto 0.1 K/mm3 (0-0.3); Eosinophils Percent Auto 2.2 % (0-4.4); Hematocrit 41.9 % (37.0-47.0); Hemoglobin 13.3 g/dL (12.0-15.0); Immature Granulocyte Absolute 0.02 K/mm3 (0.00-0.031); Immature Granulocyte Percent A 0.4 % (0-0.5); Lymphocytes Absolute Auto 2.05 K/mm3 (0.9-3.2); Mean Corpuscular HGB Conc 31.7 g/dl (32-36); Mean Corpuscular Hemoglobin 28.5 pg (26-34); Mean Corpuscular Volume 89.9 fl (80-100); Mean Platelet Volume 8.4 fl (7.4-10.4); Monocytes Absolute Auto 0.3 K/mm3 (0.1-0.6); Monocytes Percent Auto 5.9 % (2.6-8.5); Neutrophils Absolute Auto 2.8 K/mm3 (1.3-6.7); Neutrophils Percent Auto 52.8 % (45.5-73.1); Platelet Count Result 467 k/mm3 (150-375); Red Blood Count 4.66 M/mm3 (4.2-5.4); Red Cell Distribution Width 14.6 % (11.5-14.5); White Blood Count 5.4 K/mm3 (4.5-10.0)
[2020-09-24 14:22] LABS: Anion Gap 8 mmol/L (8-16); Blood Urea Nitrogen 8 mg/dL (7-17); Calcium 9.6 mg/dL (8.4-10.2); Carbon Dioxide 29 mmol/L (22-30); Chloride 100 mmol/L (98-107); Estimated CRCL calculation 107 ml/min; Estimated Glomerular Filt Rate > 60; Glucose 97 mg/dL (65-110); Potassium 4.2 mmol/L (3.4-5.0); Sodium 137 mmol/L (137-145)
[2020-09-24] MEDS: KETOROLAC 30 MG/ML VIAL (*BKC) IV PUSH (15:05)
[2020-09-24] MEDS: SODIUM CHLORIDE 0.9% IV 1,000 ML 999 ML IV CONT (15:06)
[2020-09-24 15:22] LABS: Add Urine Microscopic? YES; Appearance Urine Cloudy (Clear); Bacteria Urine Trace /hpf; Bilirubin Urine Negative (Negative); Blood Urine 3+ (Negative); Color Urine Yellow (Yellow); Glucose Urine UA Negative (Negative); Ketones Urine Negative (Negative); Leukocyte Esterase Ur Trace LEU/UL (Negative); Mucus Urine Rare /lpf; Nitrate Urine Negative (Negative); Protein Urine Negative (Negative); Specific Grav Ur 1.011 (1.001-1.035); Squamous Epithelial Cell Urine Many /hpf (Few); Urobilinogen Urine Negative mg/dL (<2.0)
--- NOTE | 2020-09-24 15:48 | ED.ABDPAIN ---
HPI - Abdominal Pain General Chief Complaint: Abdominal Pain Stated Complaint: R flank pain Time Seen by Provider: 09/24/20 14:35 History of Present Illness HPI narrative: Patient presents with lower back pain. Symptoms started this morning. Progressively worse throughout the day she was seen in urgent care and was referred to an ER concern for kidney stones. Wrist pain is achy, constant, radiating around her abdomen. She denies any urinary symptoms denies any nausea vomiting fevers. She denies recent trauma she denies major changes in weight denies known history of malignancy she denies IV drug use she denies any focal neurological deficits Related Data Home Medications Medication Instructions Recorded Confirmed ergocalciferol (vitamin D2) 1,250 mcg PO DAILY 09/24/20 09/24/20 phentermine 15 mg PO DAILY 09/24/20 09/24/20 Allergies Allergy/AdvReac Type Severity Reaction Status Date / Time No Known Allergies Allergy Verified 09/24/20 12:10 Review of Systems Review of Systems: CONSTITUTIONAL: Denies fever, chills, or sweats. EYES: Denies visual changes, redness, or discharge. ENT: Denies rhinorrhea, congestion, sore throat, or otalgia. CARDIOVASCULAR: Denies chest pain, palpitations, or edema. RESPIRATORY: Denies cough or dyspnea. GASTROINTESTINAL: Denies nausea, vomiting, or diarrhea. GENITOURINARY: Denies dysuria or hematuria. SKIN: Denies rash or itching. MUSCULOSKELETAL: Denies joint pain, or myalgia. NEUROLOGIC: Denies headache, numbness, dizziness, or weakness. PSYCHIATRIC: Denies anxiety or depression. All systems reviewed & are unremarkable except as noted in HPI and below PMFSH Past Medical History Medical History Anxiety Depression Endometriosis History of ectopic Hx of migraines Surgical History Surgical History No history of previous surgery Family History Family History Father Chronic obstructive pulmonary disease Social History Social History Smoking status: Never smoker Substance use: never Gender identity (if verbalized by the patient): Female Spiritual care concerns: No Exam Narrative: GENERAL: Well-appearing, well-nourished, and in no acute distress. HEAD: Normocephalic, atraumatic. EYES: PERRLA and EOMI. ENT: Nares clear, no rhinorrhea or epistaxis. Mucous membranes moist. NECK: Supple. No adenopathy or masses. No JVD ABDOMEN: Soft, nontender, nondistended, normal active bowel sounds. EXTREMITIES: Normal range of motion. No edema. Back: No midline tenderness CVA tenderness noted on the right mild SKIN: Warm, dry, no rash. NEURO: No focal deficits. Alert and oriented x3. PSYCH: Normal mood and affect. Course Reevaluation(s) Reevaluation #1: Labs and results reviewed with patient she reports mild to moderate improvement in her symptoms. Date: 09/24/20 Time: 15:48 Vital Signs Vital signs: Vital Signs Temperature 37.1 C 09/24/20 13:52 Pulse Rate 78 09/24/20 13:52 Respiratory Rate 18 09/24/20 13:52 Blood Pressure 114/75 09/24/20 13:52 Pulse Oximetry 99 09/24/20 13:52 Temperature 37.1 C 09/24/20 13:52 Pulse Rate 76 09/24/20 16:06 Respiratory Rate 18 09/24/20 16:06 Blood Pressure 116/99 H 09/24/20 16:06 Pulse Oximetry 99 09/24/20 13:52 MDM - Abdominal Pain Medical Records Medical records narrative: H&P as above, vss, pt looks clinically well, exam with mild CVA tenderness on the right, labs with concern for infectious urine, img without ureteral stones, additional labs/img considered, symptomatic relief available as needed, on reevaluation pt continues to looks clinically well. Suspect early pyelonephritis, dns severe sepsis, infected stone. plan to tx/monitor as op w/ pcm f/u findings/plan discussed with p
[2020-09-24 16:06] VITALS: BP 116/99; PULSE 76; RESP 18
== END 2020-09-24 16:08 | disposition home or self-care (01) ==
PROVIDERS: Emergency Medicine; Emergency Provider Emergency Medicine; PCP Family Medicine
DX: N12 Tubulo-interstitial nephritis, not specified as acute or chronic (principal); F41.9 Anxiety disorder, unspecified; F32.9 Major depressive disorder, single episode, unspecified
CPT/HCPCS: 36415; 74176; 80048; 81001; 81003; 81025; 85025; 87086; 87088; 96361; 96374; 99284; J1885; J7030

== ENCOUNTER 2020-12-09 16:34 | Outpatient (CLI) | payer OTHER, SELFPAY ==
--- NOTE | ~2020-12-09 | US_ITS ---
US renal BI 12/09/2020 16:59 Procedure: Realtime transabdominal ultrasound of the kidneys and bladder. Indication: Kidney stones Comparison: CT dated 09/24/2020 Findings: Renal echotexture is normal bilaterally without hydronephrosis, contour deforming mass or r enal calculus. The right kidney measures 11 cm and left kidney measures 10.8 cm. There is a 9 mm cyst of the lower pole of the left kidney. There are wall is mildly prominent measuring 6.8 mm, although this may be due to underdistention. Impression: 1: Mild bladder wall thickening, possibly due to underdistention, although cystitis not excluded. Cor relate clinically. Reviewed, dictated and finalized at location B. Impression: 1: Mild bladder wall thickening, possibly due to underdistention, although cyst itis not excluded. Correlate clinically.
== END 2020-12-09 16:35 | disposition home or self-care (01) ==
LOC: ANHIMG 16:42
PROVIDERS: PCP Family Medicine; Visit Provider Nurse Practitioner
DX: N20.0 Calculus of kidney (principal); N32.9 Bladder disorder, unspecified
CPT/HCPCS: 76775

== ENCOUNTER 2021-12-04 23:27 | Emergency (ER) | payer OTHER, SELFPAY ==
[2021-12-04 23:33] VITALS: BP 102/72; PULSE 87; RESP 16; TEMP 36.3; O2SAT 100
[2021-12-04 23:40] VITALS: O2SAT 87
[2021-12-04 23:41] VITALS: BP 107/84; O2SAT 100
[2021-12-04 23:45] VITALS: BP 102/77; O2SAT 100
[2021-12-04 23:46] VITALS: O2SAT 100
[2021-12-04 23:47] LABS: Glucose Point of Care 104 mg/dl (65-105)
--- NOTE | 2021-12-04 23:58 | ED.GENADULT ---
HPI - General Adult General Chief complaint: Unspecified Stated complaint: near syncope? Time Seen by Provider: 12/04/21 23:38 History of Present Illness HPI narrative: Patient is a 35-year-old female here for evaluation of a presyncopal episode earlier today. Patient states that she was standing in her kitchen when she felt lightheaded and noticed that her vision went black for several seconds. Patient was able to sit down in a chair and her symptoms quickly resolved. States that she feels shaky right now, but denies any other symptoms. Denies preceding chest pain, shortness of breath, fevers, chills, leg swelling, abdominal pain, headaches. Patient states she only had 1 glass of water and some rice for lunch. Denies cardiac history. Related Data Home Medications Medication Instructions Recorded Confirmed ergocalciferol (vitamin D2) 1,250 1,250 mcg PO DAILY 09/24/20 09/24/20 mcg (50,000 unit) capsule phentermine 15 mg capsule 15 mg PO DAILY 09/24/20 09/24/20 Allergies Allergy/AdvReac Type Severity Reaction Status Date / Time No Known Allergies Allergy Verified 12/04/21 23:39 Review of Systems Review of Systems: Gen: Reports near syncope. Denies fevers or chills Eyes: Denies eye pain or visual change ENT: Denies congestion Respiratory: Denies shortness of breath or cough CV: Denies chest pain or palpitations GI: Denies abdominal pain nausea, emesis or diarrhea denies burning, urgency, frequency or hematuria Musculoskeletal: Denies back pain or muscle pain Neuro: Denies numbness, tingling, weakness or focal weakness Skin: Denies rash Except as documented, all other systems reviewed and negative [facility] Past Medical History Medical History Anxiety Depression Endometriosis History of ectopic Hx of migraines Surgical History Surgical History No history of previous surgery Family History Family History Father Chronic obstructive pulmonary disease Social History Social History Smoking status: Never smoker Substance use: never Gender identity (if verbalized by the patient): Female Spiritual care concerns: No Exam Narrative: APPEARANCE: Well appearing, no pain in distress, well-nourished. Head: Normocephalic and atraumatic. EYES: PERRLA/EOMI, conjunctivae clear NOSE: No nasal drainage EARS: External ear normal in appearance THROAT: Oropharynx is clear. Mucous membranes are moist. NECK: Supple. No adenopathy, no masses. RESPIRATORY: Airway patent, respirations nonlabored. Clear to auscultation bilaterally, no rales, rhonchi, wheezing. CARDIOVASCULAR: Regular rate and rhythm without murmurs, rubs, or gallops. ABDOMINAL: Normoactive bowel sounds. Soft, nontender, nondistended. No rebound tenderness or guarding. MUSCULOSKELETAL: Extremities are warm and well-perfused. Moves all extremities well. No edema. NEURO: Cranial nerves II through XII intact. Normal speech. No focal neurologic deficits. SKIN: Skin is warm and dry. No rashes. PSYCHIATRIC: Normal affect/mood. Course Vital Signs Vital signs: Vital Signs Temperature 97.4 F L 12/04/21 23:33 Pulse Rate 87 12/04/21 23:33 Respiratory Rate 16 12/04/21 23:33 Blood Pressure 102/72 12/04/21 23:33 Pulse Oximetry 100 12/04/21 23:33 Oxygen Delivery Room Air 12/04/21 23:33 Temperature 97.4 F L 12/04/21 23:33 Pulse Rate 86 12/05/21 01:00 Respiratory Rate 16 12/04/21 23:33 Blood Pressure 103/83 12/05/21 01:00 Pulse Oximetry 100 12/04/21 23:33 Oxygen Delivery Room Air 12/04/21 23:33 Medical Decision Making MDM Narrative Medical decision making narrative: 35-year-old female here for evaluation of presyncopal episode earlier today. She is nontoxic-appeari
[2021-12-05] VITALS (19 sets, daily range): BP systolic 93–106; BP diastolic 68–83; PULSE 76–86; O2SAT 100
[2021-12-05] LABS: Basophils Absolute Auto 0.1 K/mm3 (0.0-0.1); Basophils Percent Auto 0.5 % (0.2-1.2); Eosinophils Absolute Auto 0.2 K/mm3 (0-0.3); Eosinophils Percent Auto 1.9 % (0-4.4); Hematocrit 40.8 % (37.0-47.0); Hemoglobin 13.4 g/dL (12.0-15.0); Immature Granulocyte Absolute 0.02 K/mm3 (0.00-0.031); Immature Granulocyte Percent A 0.2 % (0-0.5); Lymphocytes Absolute Auto 1.78 K/mm3 (0.9-3.2); Lymphocytes Percent Auto 19.5 % (18.3-44.2); Mean Corpuscular HGB Conc 32.8 g/dl (32-36); Mean Corpuscular Hemoglobin 30.2 pg (26-34); Mean Corpuscular Volume 91.9 fl (80-100); Mean Platelet Volume 8.7 fl (7.4-10.4); Monocytes Absolute Auto 0.7 K/mm3 (0.1-0.6); Monocytes Percent Auto 7.2 % (2.6-8.5); Neutrophils Absolute Auto 6.5 K/mm3 (1.3-6.7); Neutrophils Percent Auto 70.7 % (45.5-73.1); Platelet Count Result 407 k/mm3 (150-375); Red Blood Count 4.44 M/mm3 (4.2-5.4); Red Cell Distribution Width 14.1 % (11.5-14.5); White Blood Count 9.1 K/mm3 (4.5-10.0)
--- NOTE | 2021-12-05 | ECG_ITS ---
Measurements Intervals [place] Rate: 87 P: 59 IN: 145 QRS: 63 QRSD: 82 T: 50 QT: 358 QTc: 433 Interpretive Statements SINUS RHYTHM NORMAL ECG NO PREVIOUS ECG AVAILABLE FOR COMPARISON Electronically Signed On 12-05-2021 15:33:08 CDT by Osito Torres M.D.
[2021-12-05 00:09] LABS: Alanine Aminotransferase 16 U/L (6-35); Albumin Level 4.4 g/dL (3.5-5.1); Alkaline Phosphatase 87 U/L (38-126); Anion Gap 10 mmol/L (8-16); Aspartate Amino Transferase 26 U/L (14-36); Bilirubin,Total 0.8 mg/dL (0.2-1.3); Blood Urea Nitrogen 12 mg/dL (7-17); Calcium 8.8 mg/dL (8.4-10.2); Carbon Dioxide 26 mmol/L (22-30); Chloride 100 mmol/L (98-107); Estimated CRCL calculation 87 ml/min; Estimated Glomerular Filt Rate > 60; Glucose 105 mg/dL (65-110); Potassium 3.8 mmol/L (3.4-5.0); Sodium 136 mmol/L (137-145)
[2021-12-05] MEDS: SODIUM CHLORIDE 0.9% IV 1,000 ML 999 ML IV CONT (00:11)
[2021-12-05 00:21] LABS: Troponin I < 0.012 ng/mL (0.000-0.034)
== END 2021-12-05 02:12 | disposition home or self-care (01) ==
PROVIDERS: Physician Assistant; Emergency Provider Emergency Medicine; PCP Family Medicine
DX: R55 Syncope and collapse (principal); R42 Dizziness and giddiness; N80.9 Endometriosis, unspecified
CPT/HCPCS: 36415; 80053; 81025; 82948; 84484; 85025; 93005; 96360; 96361; 99283; J7030

== ENCOUNTER 2022-01-24 11:11 | Emergency (ER) | payer OTHER, SELFPAY ==
[2022-01-24 11:19] VITALS: BP 138/83; PULSE 77; RESP 16; TEMP 36.8; O2SAT 100
--- NOTE | 2022-01-24 13:10 | ED.GENADULT ---
HPI - General Adult General Chief complaint: Skin/Abscess/Foreign Body Stated complaint: feel like a pill is stuck in my throat Time Seen by Provider: 01/24/22 12:15 History of Present Illness HPI narrative: 36-year-old female presented to the emergency department for evaluation of a possible pill stuck in her throat. Patient states the incident happened night and she felt that she had the pill stuck for a few hours. Patient states that she made herself vomit. Patient states she has been able to swallow her own secretions and has been eating and drinking. Patient states last night she was trying to eat a salad but due to her throat pain she became increasingly concerned. Patient states she has been able to drink and swallow today. Patient denies any difficulty breathing. Related Data Home Medications Medication Instructions Recorded Confirmed ergocalciferol (vitamin D2) 1,250 1,250 mcg PO DAILY 09/24/20 09/24/20 mcg (50,000 unit) capsule phentermine 15 mg capsule 15 mg PO DAILY 09/24/20 09/24/20 Allergies Allergy/AdvReac Type Severity Reaction Status Date / Time No Known Allergies Allergy Verified 01/24/22 11:22 Review of Systems Review of Systems: CONSTITUTIONAL: Denies fever, chills, or sweats. EYES: Denies visual changes, redness, or discharge. ENT: See HPI CARDIOVASCULAR: Denies chest pain, palpitations, or edema. RESPIRATORY: Denies cough or dyspnea. GASTROINTESTINAL: Denies abdominal pain, nausea, vomiting, or diarrhea. GENITOURINARY: Denies dysuria or hematuria. SKIN: Denies rash or itching. MUSCULOSKELETAL: Denies back pain, joint pain, or myalgia. NEUROLOGIC: Denies headache, numbness, or weakness. [facility] Past Medical History Medical History Anxiety Depression Endometriosis History of ectopic Hx of migraines Surgical History Surgical History No history of previous surgery Family History Family History Father Chronic obstructive pulmonary disease Social History Social History Smoking status: Never smoker Substance use: never Gender identity (if verbalized by the patient): Female Spiritual care concerns: No Exam Narrative: APPEARANCE: Well appearing, no pain, no distress, well-nourished. HEAD: normocephalic, atraumatic. EYES: PERRLA/EOMI, conjunctivae clear. NOSE: Normal no drainage EARS:TMS clear with good light reflex. THROAT: Pharynx clear, no exudate. No stridor. No palpated external swelling. Patient is handling her own secretions. NECK: Supple. No adenopathy, no masses. RESPIRATORY: Airway patent, respirations nonlabored. Clear to auscultation bilaterally, no rales, rhonchi, wheezing. CARDIOVASCULAR: Regular rate and rhythm without murmurs rubs or gallops. ABDOMINAL: Soft, nontender, nondistended, normal bowel sounds MUSCULOSKELETAL: Moves all extremities. Strength/ROM intact, No edema, No calf tenderness. NEURO: Alert. Cranial nerves II through XII intact. Grossly intact SKIN: Warm, dry. Normal Color Course Course Emergency Course: Patient reports she is still eating drinking. Patient was advised to follow a clear liquid or a soft diet for the next few days. Patient was also advised to try Maalox as needed. Patient was encouraged of close follow-up with a primary care physician but was also provided follow-up with orthopedics. All questions and concerns were addressed. Patient was comfortable with the plan with discharge and close follow-up Vital Signs Vital signs: Vital Signs Temperature 98.2 F 01/24/22 11:19 Pulse Rate 77 01/24/22 11:19 Respiratory Rate 16 01/24/22 11:19 Blood Pressure 138/83 01/24/22 11:19 Pulse Oximetry 100 01/24/22 11:19 Temperature 98.2 F 01/24/22 11:19 Pulse Rat
[2022-01-24 13:52] VITALS: BP 136/86; PULSE 74; RESP 18; O2SAT 98
== END 2022-01-24 13:53 | disposition home or self-care (01) ==
PROVIDERS: Emergency Provider Emergency Medicine; PCP Family Medicine
DX: K20.80 Other esophagitis without bleeding (principal)
CPT/HCPCS: 99281

== ENCOUNTER 2023-02-26 18:45 | Emergency (ER) | payer OTHER, SELFPAY | END 2023-02-26 23:34 | disposition left against medical advice (07) | LOC: ANHED 19:48 | PROVIDERS: PCP Family Medicine | DX: Z53.21 Procedure and treatment not carried out due to patient leaving prior to being seen by health care provider (principal) | CPT/HCPCS: 99199 ==

== ENCOUNTER 2023-03-22 18:28 | Emergency (ER) | payer OTHER, SELFPAY ==
[2023-03-22 18:48] VITALS: BP 106/70; PULSE 72; RESP 16; TEMP 37.3; O2SAT 100
--- NOTE | 2023-03-22 19:04 | ED.GENADULT ---
HPI - General Adult General Chief complaint: Neck Pain/Injury Stated complaint: Neck/Shoulder Pain Source: patient, RN notes reviewed and old records reviewed Mode of arrival: ambulatory Limitations: no limitations History of Present Illness HPI narrative: 37-year-old female presents to [facility] with complaints left sided neck pain that started Wednesday morning. Patient states had a night terror Wednesday night and woke with pain in the a.m.. Patient not tried anything for pain. Patient states did fall last Wednesday on eyes and had slight pain in arm but states pain improved today. MD complaint: Left neck pain Onset (ago): day(s) (2) Related Data Allergies Allergy/AdvReac Type Severity Reaction Status Date / Time No Known Allergies Allergy Verified 03/22/23 18:49 Review of Systems Constitutional: Constitutional: Reports no additional constitutional complaints, Denies body ache(s), Denies chills, Denies fatigue, Denies fever(s) and Denies headache(s) Eyes: Eyes: Reports no additional eye complaints and Denies blurry vision ENT: Reports system reviewed and no additional complaints, except as documented, Denies vertigo, Denies dizziness, Denies ear discharge, Denies otalgia, Denies facial pain, Denies headache(s), Denies nasal congestion, Denies nasal discharge, Denies sinus pain, Denies sinus pressure and Denies sore throat Cardiovascular: Cardiovascular: Reports no additional cardiovascular complaints, Denies chest pain, Denies chest pain at rest, Denies rapid heart rate and Denies dyspnea Respiratory: Respiratory: Reports no additional respiratory complaints, Denies chest congestion, Denies cough, Denies pain on inspiration, Denies pain with cough and Denies dyspnea Gastrointestinal: Gastrointestinal: Denies abdominal pain, Denies diarrhea, Denies nausea and Denies vomiting Musculoskeletal: Musculoskeletal: Reports neck pain Integumentary/Breasts: Skin/Breast: Denies rash Neurologic: Reports system reviewed and no additional complaints, except as documented, Denies vertigo, Denies dizziness and Denies headache(s) Endocrine: Endocrine: Denies fatigue PMFSH Past Medical History Medical History Anxiety Depression Endometriosis History of ectopic Hx of migraines Surgical History Surgical History H/O unilateral salpingectomy History of delivery History of hysteroscopy D & C Family History Family History Father Chronic obstructive pulmonary disease Social History Social History Smoking status: Never smoker Alcohol intake: never Substance use: never Living arrangements: with family Occupation/Education: occupation Gender identity (if verbalized by the patient): Female Spiritual care concerns: No Comments At the time of my signature, I reviewed and agree with the nursing past medical, surgical, social, and family history. There is no relevant family history pertinent to the patient complaint. Exam Const: General: cooperative, healthy appearing, no acute distress and well nourished Nutritional Appearance: well nourished Orientation/consciousness: patient oriented x3 Limitations: no limitations HENMT: Head: normal to inspection and normocephalic Ears: external ears normal, TM's normal bilaterally, mastoids normal and Abnormal EAC present Face/Nose/Sinus: normal facial exam Face and sinus: normal facial exam Mouth: Yes Normal oral and palatal mucosa present, Yes oropharynx normal and Yes moist mucous membranes Throat: tonsils normal, uvula midline and no uvular edema Eyes: General: appearance normal, both eyes and all related structures Sclera: sclerae normal Pupils: Equal, round and reactive pupils present Neck: Neck: normal visual inspection, no l
== END 2023-03-22 19:12 | disposition home or self-care (01) ==
PROVIDERS: Emergency Provider Registered Nurse; PCP Family Medicine
DX: S16.1XXA Strain of muscle, fascia and tendon at neck level, initial encounter (principal); X58.XXXA Exposure to other specified factors, initial encounter; N80.9 Endometriosis, unspecified
CPT/HCPCS: 99213; G0463

== ENCOUNTER 2023-05-16 12:12 | Emergency (ER) | payer OTHER, SELFPAY ==
[2023-05-16 12:16] VITALS: BP 120/81; PULSE 135; RESP 19; TEMP 36.9; O2SAT 100
--- NOTE | 2023-05-16 12:19 | ED.GENADULT ---
HPI - General Adult General Chief complaint: Unspecified Stated complaint: breast pain Time Seen by Provider: 05/16/23 12:19 Source: patient Mode of arrival: ambulatory History of Present Illness HPI narrative: 37-year-old female presenting for left breast pain ongoing for several days now. It has been making her very anxious that she is having heart issues. She says that she noticed some sharp pain in her left lateral breast when she palpates the in a specific area for the last few days and is very concerned her that her heart is having issues. Otherwise no complaints Related Data Allergies Allergy/AdvReac Type Severity Reaction Status Date / Time No Known Allergies Allergy Verified 03/22/23 18:49 Review of Systems Review of Systems: All systems reviewed & are unremarkable except as noted in HPI and below PMFSH Past Medical History Medical History Anxiety Depression Endometriosis History of ectopic Hx of migraines Surgical History Surgical History H/O unilateral salpingectomy History of delivery History of hysteroscopy D & C Family History Family History Father Chronic obstructive pulmonary disease Social History Social History Smoking status: Never smoker Alcohol intake: never Substance use: never Living arrangements: with family Occupation/Education: occupation Gender identity (if verbalized by the patient): Female Spiritual care concerns: No Exam Narrative: Constitutional: Generally well appearing, no acute distress Head: Atraumatic, no deformities. Eyes: Pupils equal, round, and reactive to light. Neck: Supple, no tracheal deviation, no JVD. ENMT: Mucous membranes moist Cardiovascular: S1, S2 auscultated. No murmurs, rubs, or gallops. No S3/S4. Normal Distal pulses. No peripheral edema. Respiratory: Lung sounds equal. No wheezes, rales, or rhonchi. Gastrointestinal: Abdomen was soft and non-tender. Non-distended. No rebound or guarding. Genitourinary: Deferred Musculoskeletal: Normal muscle tone and bulk. No obvious deformities or tenderness over extremities. Skin: No rashes. Neurological: Strength 5/5 in extremities. Cranial nerves I-XII grossly intact. Distal sensation intact. Mental Status: Awake, alert and oriented x3. Follows commands breast: Left breast shows some very mild tenderness in a pinpoint spot on the left lateral lower quadrant without any warmth, overlying erythema, masses. No discharge. No asymmetry Course Vital Signs Vital signs: Vital Signs Temperature 36.9 C 05/16/23 12:16 Pulse Rate 135 H 05/16/23 12:16 Respiratory Rate 19 05/16/23 12:16 Blood Pressure 120/81 05/16/23 12:16 Pulse Oximetry 100 05/16/23 12:16 Oxygen Delivery Room Air 05/16/23 12:16 Temperature 36.8 C 05/16/23 12:26 Pulse Rate 86 05/16/23 12:26 Respiratory Rate 16 05/16/23 12:26 Blood Pressure 123/76 05/16/23 12:26 Pulse Oximetry 100 05/16/23 12:26 Oxygen Delivery Room Air 05/16/23 12:26 Medical Decision Making MDM Narrative Medical decision making narrative: well-appearing 37-year-old female presenting because she is having some sharp pain in her left breast when she palpates the specific area in the left lateral lower region. Ongoing a few days. Wanted to make sure she was having any heart problems. On exam she is well-appearing, very anxious initially, but I was able to calm down. Initial heart rate 135 in triage, 86 when I saw her. Suspect this is all due to the anchors feeling patient is having. Exam was unremarkable apart from this small area of left lateral lower quadrant of the left breast where she has some tenderness with some nothing any focal abnormalities there at all. No si
[2023-05-16 12:26] VITALS: BP 123/76; PULSE 86; RESP 16; TEMP 36.8; O2SAT 100
--- NOTE | 2023-05-16 12:33 | ECG_ITS ---
Measurements Intervals [place] Rate: 70 P: 54 UT: 147 QRS: 62 QRSD: 79 T: 45 QT: 371 QTc: 403 Interpretive Statements SINUS RHYTHM NORMAL ECG COMPARED TO ECG 12/05/2021 00:08:39 NO SIGNIFICANT CHANGES Electronically Signed On 05-16-2023 16:43:57 CDT by Jimmy Matos D.O.
[2023-05-16 13:36] VITALS: BP 121/78; PULSE 83; RESP 14; TEMP 36.7; O2SAT 100
== END 2023-05-16 13:38 | disposition home or self-care (01) ==
PROVIDERS: Emergency Provider Emergency Medicine; PCP Family Medicine
DX: R07.9 Chest pain, unspecified (principal); Z90.721 Acquired absence of ovaries, unilateral
CPT/HCPCS: 81025; 93005; 99283

== ENCOUNTER 2023-07-06 20:31 | Emergency (ER) | payer OTHER, SELFPAY ==
[2023-07-06 20:33] VITALS: BP 139/70; PULSE 102; RESP 18; TEMP 36.4; O2SAT 100
[2023-07-06 21:17] VITALS: BP 114/70; PULSE 90; RESP 21; O2SAT 94
--- NOTE | 2023-07-06 21:57 | ED.GENADULT ---
HPI - General Adult General Chief complaint: Headache Stated complaint: uri, headache Time Seen by Provider: 07/06/23 21:48 Source: patient Mode of arrival: ambulatory Limitations: no limitations History of Present Illness HPI narrative: This is a 37-year-old female who presents to the ED for medical screening. Patient reports complaint of having a weird reaction. ? States she was started on amoxicillin for strep throat yesterday. She took Excedrin migraine for headache today and is concerned that these medications have had an interaction. She has been Googling her symptoms and interactions between medications which made her very concerned. She reports history of anxiety but has never had a panic attack before. States she has never had take any of the previously prescribed anxiety medications before. Patient reports that she has had intermittent cool rashes and full body tingling since this afternoon. Reports that her headache is completely resolved as I interview her. Denies fevers, chills, nausea, vomiting, diarrhea. Related Data Allergies Allergy/AdvReac Type Severity Reaction Status Date / Time No Known Allergies Allergy Verified 03/22/23 18:49 Review of Systems Review of Systems: All systems as dictated in [facility] Past Medical History Medical History Anxiety Depression Endometriosis History of ectopic Hx of migraines Surgical History Surgical History H/O unilateral salpingectomy History of delivery History of hysteroscopy D & C Family History Family History Father Chronic obstructive pulmonary disease Social History Social History Smoking status: Never smoker Alcohol intake: never Substance use: never Living arrangements: with family Occupation/Education: occupation Gender identity (if verbalized by the patient): Female Spiritual care concerns: No Exam Narrative: GENERAL: Appears generally anxious. Does not appear toxic HEAD: Normocephalic, atraumatic. EYES: PERRLA and EOMI. ENT: Nares clear, no rhinorrhea or epistaxis. Mucous membranes moist. Oropharynx without tonsillar hypertrophy exudate or other lesions. NECK: Supple. No adenopathy or masses. CHEST: No respiratory distress. Clear to auscultation. No wheezes rales or rhonchi HEART: Regular rate and rhythm. No murmur heard. Normal peripheral pulses. ABDOMEN: Soft, nontender, nondistended, normal active bowel sounds. MSK: Normal range of motion. No edema. SKIN: Warm, dry, no rash. NEURO: Alert and oriented x3. No focal deficits. PSYCH: Anxious mood. Appropriate affect Course Vital Signs Vital signs: Vital Signs Temperature 97.6 F 07/06/23 20:33 Pulse Rate 102 H 07/06/23 20:33 Respiratory Rate 18 07/06/23 20:33 Blood Pressure 139/70 07/06/23 20:33 Pulse Oximetry 100 07/06/23 20:33 Oxygen Delivery Room Air 07/06/23 20:33 Temperature 97.6 F 07/06/23 20:33 Pulse Rate 84 07/06/23 23:48 Respiratory Rate 16 07/06/23 23:48 Blood Pressure 102/71 07/06/23 23:48 Pulse Oximetry 98 07/06/23 23:48 Oxygen Delivery Room Air 07/06/23 20:33 Medical Decision Making MDM Narrative Medical decision making narrative: This is a 37-year-old female who presents to the ED with chief complaint of headache and possible medication reaction. She is very concerned for possible interaction between Excedrin amoxicillin that she took earlier today. Vitals are normal. Exam is benign other than the patient appearing very anxious. Her headache is actually fully resolved by the time that I talked to her. Advise the patient that a lot of her symptoms and presentation are consistent with anxiety attack. Offered anxiety lytics but patient is
[2023-07-06 22:29] LABS: Appearance Urine Clear (Clear); Bacteria Urine Rare /hpf; Bilirubin Urine Negative (Negative); Blood Urine 1+ (Negative); Color Urine Yellow (Yellow); Glucose Urine UA Negative (Negative); Ketones Urine 4+ mg/dL (Negative); Leukocyte Esterase Ur Trace LEU/UL (Negative); Need Manual Microscopic Reviewed; Nitrate Urine Negative (Negative); Protein Urine 1+ mg/dL (Negative); Specific Grav Ur 1.025 (1.001-1.035); Squamous Epithelial Cell Urine Few /hpf (Few); pH Urine 6.5 (5.0-9.0)
[2023-07-06 22:30] LABS: Add Urine Microscopic? YES
[2023-07-06 22:53] LABS: Basophils Percent Auto 0.3 % (0.2-1.2); Eosinophils Percent Auto 0.3 % (0-4.4); Hematocrit 34.5 % (37.0-47.0); Hemoglobin 11.6 g/dL (12.0-15.0); Immature Granulocyte Absolute 0.01 K/mm3 (0.00-0.031); Immature Granulocyte Percent A 0.2 % (0-0.5); Lymphocytes Absolute Auto 0.83 K/mm3 (0.9-3.2); Lymphocytes Percent Auto 13.7 % (18.3-44.2); Mean Corpuscular HGB Conc 33.6 g/dl (32-36); Mean Corpuscular Hemoglobin 29.8 pg (26-34); Mean Corpuscular Volume 88.7 fl (80-100); Monocytes Absolute Auto 0.4 K/mm3 (0.1-0.6); Monocytes Percent Auto 6.6 % (2.6-8.5); Neutrophils Absolute Auto 4.8 K/mm3 (1.3-6.7); Neutrophils Percent Auto 78.9 % (45.5-73.1); Platelet Count Result 334 k/mm3 (150-375); Red Blood Count 3.89 M/mm3 (4.2-5.4); White Blood Count 6.1 K/mm3 (4.5-10.0)
[2023-07-06 23:05] LABS: Alanine Aminotransferase 21 U/L (6-35); Albumin Level 4.2 g/dL (3.5-5.1); Alkaline Phosphatase 87 U/L (38-126); Anion Gap 10 mmol/L (4-12); Aspartate Amino Transferase 27 U/L (14-36); Bilirubin,Total 0.7 mg/dL (0.2-1.3); Blood Urea Nitrogen 10 mg/dL (7-17); Calcium 8.5 mg/dL (8.4-10.2); Carbon Dioxide 20 mmol/L (22-30); Chloride 100 mmol/L (98-107); Estimated CRCL calculation 116 ml/min; Estimated Glomerular Filt Rate > 60; Glucose 113 mg/dL (65-110); Potassium 3.3 mmol/L (3.4-5.0); Sodium 130 mmol/L (137-145)
[2023-07-06] MEDS: SODIUM CHLORIDE 0.9% IV 1,000 ML 999 ML IV CONT (23:13)
[2023-07-06 23:48] VITALS: BP 102/71; PULSE 84; RESP 16; O2SAT 98
[2023-07-07 00:05] LABS: Amphetamine Screen Urine Negative (Negative); Barbiturate Screen Urine Negative (Negative); Benzodiazepines Screen Urine Negative (Negative); Cannabinoid Screen Urine Negative (Negative); Cocaine Screen Urine Negative (Negative); Methadone Screen Urine Negative (Negative); Opiate Screen Urine Negative (Negative); Phencyclidine Screen Urine Negative (Negative)
[2023-07-07] MEDS: POTASSIUM CHLORIDE 20 MEQ ER TABLET PO (00:21)
== END 2023-07-07 02:09 | disposition home or self-care (01) ==
PROVIDERS: Emergency Provider Physician Assistant; PCP Family Medicine
DX: F41.9 Anxiety disorder, unspecified (principal); E86.0 Dehydration; J02.0 Streptococcal pharyngitis; N80.9 Endometriosis, unspecified; Z90.721 Acquired absence of ovaries, unilateral
CPT/HCPCS: 36415; 80053; 80307; 81001; 85025; 87086; 87088; 96360; 99283; A9270; J7030

== ENCOUNTER 2023-07-10 04:19 | Emergency (ER) | payer OTHER, SELFPAY ==
--- NOTE | ~2023-07-10 | XR_ITS ---
EXAMINATION: XR chest 1V portable DATE: 07/10/2023 04:56 INDICATION: Cough. TECHNIQUE: A single frontal view of the chest was obtained. COMPARISON: CT abdomen and pelvis 09/24/2020 FINDINGS: There is no pneumonia, pleural effusion, or pneumothorax. The heart size is normal. IMPRESSION: 1. No acute cardiopulmonary disease. Reviewed, dictated and finalized at location A.
[2023-07-10 04:24] VITALS: BP 137/88; PULSE 110; RESP 22; TEMP 36.4; O2SAT 100
--- NOTE | 2023-07-10 04:27 | ECG_ITS ---
SEE SCANNED COPY FOR CONFIRMED REPORT MTDD
--- NOTE | 2023-07-10 04:41 | ED.ANXIETY ---
HPI - Anxiety General Chief Complaint: Anxiety Stated Complaint: anxiety Time Seen by Provider: 07/10/23 04:22 History of Present Illness HPI narrative: 37-year-old female present to the emergency department for an a suspected panic attack. Patient states that she was diagnosed with strep throat a few days ago. Patient reports she has been having more frequent panic attacks. Patient felt that she was having a panic attack today. Patient presents to the ED complaining of anxiety and throat swelling. Related Data Home Medications Medication Instructions Recorded Confirmed benzonatate 200 mg capsule 200 mg PO DIRECTED 07/14/23 07/14/23 penicillin V potassium 500 mg 500 mg DIRECTED 07/14/23 07/14/23 tablet Allergies Allergy/AdvReac Type Severity Reaction Status Date / Time No Known Allergies Allergy Verified 07/10/23 04:30 Review of Systems Review of Systems: All systems reviewed & are unremarkable except as noted in HPI and below PMFSH Past Medical History Medical History Anxiety Depression Endometriosis History of ectopic Hx of migraines Surgical History Surgical History H/O unilateral salpingectomy History of delivery History of hysteroscopy D & C Family History Family History Father Chronic obstructive pulmonary disease Social History Social History Smoking status: Never smoker Alcohol intake: never Substance use: never Substance use type: prescription drug Living arrangements: with family Occupation/Education: occupation Gender identity (if verbalized by the patient): Female Spiritual care concerns: No Course Vital Signs Vital signs: Vital Signs Temperature 97.5 F L 07/10/23 04:24 Pulse Rate 110 H 07/10/23 04:24 Respiratory Rate 22 H 07/10/23 04:24 Blood Pressure 137/88 07/10/23 04:24 Pulse Oximetry 100 07/10/23 04:24 Oxygen Delivery Room Air 07/10/23 04:24 Temperature 97.5 F L 07/10/23 04:24 Pulse Rate 84 07/10/23 06:11 Respiratory Rate 18 07/10/23 06:11 Blood Pressure 109/75 07/10/23 06:11 Pulse Oximetry 100 07/10/23 06:11 Oxygen Delivery Room Air 07/10/23 04:24 MDM - Anxiety MDM Narrative Medical decision making narrative: 37-year-old female presents emergency department for evaluation of increased panic attacks. Patient states that she has had increased panic attacks since being diagnosed with strep throat. Patient still on antibiotics for strep throat. Patient is afebrile with no leukocytosis and a stable hemoglobin of 12. Patient's potassium was low at 2.9 this was replaced orally. patient did feel improved with treatment in the emergency department. Patient was encouraged of close follow-up with primary care physician for additional outpatient evaluation and for treatment of her anxiety And her hypokalemia. Differential Diagnosis Differential diagnosis: Likely hyperventilation, panic disorder and acute anxiety Lab Data 07/10/23 05:20 07/10/23 05:20 Labs: Lab Results 07/10/23 07/10/23 Range/Units 05:20 05:26 WBC 7.9 (4.5-10.0) K/mm3 RBC 4.11 L (4.2-5.4) M/mm3 Hgb 12.0 (12.0-15.0) g/dL Hct 36.3 L (37.0-47.0) % MCV 88.3 (80-100) fl MCH 29.2 (26-34) pg MCHC 33.1 (32-36) g/dl RDW 13.1 (11.5-14.5) % Plt Count 399 H (150-375) k/mm3 MPV 8.6 (7.4-10.4) fl Immature Gran % (Auto) 0.3 (0-0.5) % Neut % (Auto) 70.0 (45.5-73.1) % Lymph % (Auto) 19.6 (18.3-44.2) % [place] % (Auto) 9.1 H (2.6-8.5) % Eos % (Auto) 0.6 (0-4.4) % Baso % (Auto) 0.4 (0.2-1.2) % Lymph # (Auto) 1.55 (0.9-3.2) K/mm3 [place] # (Auto) 0.7 H (0.1-0.6) K/mm3 Eos # (Auto) 0.1 (0-0.3) K/mm3 Baso # (Auto)
[2023-07-10] MEDS: LORazepam INJ (*CRX) 2 MG/ML VIAL 0.5 MG IV PUSH (05:24)
[2023-07-10 05:25] LABS: Basophils Percent Auto 0.4 % (0.2-1.2); Eosinophils Absolute Auto 0.1 K/mm3 (0-0.3); Eosinophils Percent Auto 0.6 % (0-4.4); Hematocrit 36.3 % (37.0-47.0); Immature Granulocyte Absolute 0.02 K/mm3 (0.00-0.031); Immature Granulocyte Percent A 0.3 % (0-0.5); Lymphocytes Absolute Auto 1.55 K/mm3 (0.9-3.2); Lymphocytes Percent Auto 19.6 % (18.3-44.2); Mean Corpuscular HGB Conc 33.1 g/dl (32-36); Mean Corpuscular Hemoglobin 29.2 pg (26-34); Mean Corpuscular Volume 88.3 fl (80-100); Mean Platelet Volume 8.6 fl (7.4-10.4); Monocytes Absolute Auto 0.7 K/mm3 (0.1-0.6); Monocytes Percent Auto 9.1 % (2.6-8.5); Neutrophils Absolute Auto 5.5 K/mm3 (1.3-6.7); Platelet Count Result 399 k/mm3 (150-375); Red Blood Count 4.11 M/mm3 (4.2-5.4); Red Cell Distribution Width 13.1 % (11.5-14.5); White Blood Count 7.9 K/mm3 (4.5-10.0)
[2023-07-10 05:43] LABS: Alanine Aminotransferase 15 U/L (6-35); Albumin Level 4.3 g/dL (3.5-5.1); Alkaline Phosphatase 87 U/L (38-126); Anion Gap 9 mmol/L (4-12); Aspartate Amino Transferase 20 U/L (14-36); Bilirubin,Total 0.7 mg/dL (0.2-1.3); Calcium 8.9 mg/dL (8.4-10.2); Carbon Dioxide 23 mmol/L (22-30); Chloride 106 mmol/L (98-107); Estimated CRCL calculation 125 ml/min; Estimated Glomerular Filt Rate > 60; Glucose 113 mg/dL (65-110); Potassium 2.9 mmol/L (3.4-5.0); Sodium 138 mmol/L (137-145)
[2023-07-10 05:49] LABS: Ethanol < 10 mg/dL (<10)
[2023-07-10 06:01] LABS: Influenza A QL RT-PCR Negative (Negative); Influenza B QL RT-PCR Negative (Negative); RSV RNA, RT-PCR Negative (Negative); SARS-CoV-2 RNA PCR Negative (Negative)
[2023-07-10] MEDS: POTASSIUM CHLORIDE 20 MEQ PACKET (FOR LIQUID) 40 MEQ PO (06:06)
[2023-07-10 06:07] LABS: Amphetamine Screen Urine Negative (Negative); Barbiturate Screen Urine Negative (Negative); Benzodiazepines Screen Urine Negative (Negative); Cannabinoid Screen Urine Negative (Negative); Cocaine Screen Urine Negative (Negative); Methadone Screen Urine Negative (Negative); Opiate Screen Urine Negative (Negative); Phencyclidine Screen Urine Negative (Negative)
[2023-07-10 06:11] VITALS: BP 109/75; PULSE 84; RESP 18; O2SAT 100
[2023-07-10 07:21] LABS: Blood Urea Nitrogen < 2 mg/dL (7-17)
== END 2023-07-10 06:30 | disposition home or self-care (01) ==
PROVIDERS: Emergency Provider Emergency Medicine; PCP Family Medicine
DX: F41.9 Anxiety disorder, unspecified (principal); E87.6 Hypokalemia; Z20.822 Contact with and (suspected) exposure to COVID-19; Z90.721 Acquired absence of ovaries, unilateral; Z79.899 Other long term (current) drug therapy; R94.31 Abnormal electrocardiogram [ECG] [EKG]
CPT/HCPCS: 36415; 71045; 80053; 80307; 85025; 87637; 93005; 96374; 99284; A9270; J2060

== ENCOUNTER 2023-07-14 12:50 | Emergency (ER) | payer OTHER, SELFPAY ==
[2023-07-14 13:00] VITALS: BP 94/70; PULSE 92; RESP 16; TEMP 37.4; O2SAT 99
[2023-07-14 13:01] VITALS: BP 94/70; PULSE 92; RESP 16; TEMP 37.4; O2SAT 99
--- NOTE | 2023-07-14 13:04 | ED.WEAKNESS ---
HPI - Weakness General Chief complaint: Weakness Stated complaint: Weakness Time Seen by Provider: 07/14/23 13:06 Source: patient Mode of arrival: ambulatory Limitations: no limitations History of Present Illness HPI Narrative: 37 y/o female presented for c/o weakness. Onset just prior to arrival. States she was on the way to get labs when she felt generalized weakness, and was then told by the Lab she could not get labwork if she is weak, so she came for evaluation. Pt was seen on ER 07/05 and 07/09 with low potassium. Labs today were to recheck level. Was seen by PCP just prior to arrival. Denies heart racing, dizziness, abdominal pain, n/v/d/f/c. Endorses recent panic attacks. Related Data Home Medications Medication Instructions Recorded Confirmed benzonatate 200 mg capsule 200 mg PO DIRECTED 07/14/23 07/14/23 penicillin V potassium 500 mg 500 mg DIRECTED 07/14/23 07/14/23 tablet Allergies Allergy/AdvReac Type Severity Reaction Status Date / Time No Known Allergies Allergy Verified 07/10/23 04:30 Review of Systems Review of Systems: CONSTITUTIONAL: reports weakness Denies body aches, fever, chills, or sweats. EYES: Denies visual changes, redness, or discharge. ENT: Denies rhinorrhea, congestion, sore throat, or otalgia. CARDIOVASCULAR: Denies chest pain, palpitations, or edema. RESPIRATORY: reports cough denies dyspnea. SKIN: Denies rash, itching, or wounds. MUSCULOSKELETAL: Denies back pain, joint pain, or myalgia. NEUROLOGIC: Denies headache, numbness, tingling PSYCH: reports anxiety. All systems reviewed & are unremarkable except as noted in HPI and below PMFSH Past Medical History Medical History Anxiety Depression Endometriosis History of ectopic Hx of migraines Surgical History Surgical History H/O unilateral salpingectomy History of delivery History of hysteroscopy D & C Family History Family History Father Chronic obstructive pulmonary disease Social History Social History Smoking status: Never smoker Alcohol intake: never Substance use: never Substance use type: prescription drug Living arrangements: with family Occupation/Education: occupation Gender identity (if verbalized by the patient): Female Spiritual care concerns: No Comments At time of signature, I have reviewed and agree with nursing past medical, surgical, social and family history unless otherwise noted. Please see nursing chart for further information. There is no relevant family history pertinent to the presenting complaint Exam Narrative: GENERAL: Well-appearing,and in no acute distress. HEAD: Normocephalic, atraumatic. EYES: EOMI. No redness or drainage. Conjunctivae normal. ENT: Mucous membranes pink and moist. No rhinorrhea. TMs normal bilaterally. Throat normal. Uvula midline. NECK: Normal AROM. Supple. No lymphadenopathy. CHEST: No respiratory distress. Clear to auscultation. HEART: Regular rate and rhythm. No murmur appreciated. Normal peripheral pulses. ABDOMEN: Soft, nontender, nondistended, normal active bowel sounds. EXTREMITIES: Normal range of motion. No edema. SKIN: Warm, dry, no rash. Capillary refill normal. Normal skin turgor. NEURO: No focal deficits. Alert and oriented x3. Gait steady. PSYCH: Anxious, tearful at times. Course Course Emergency Course: Patient is aware of diagnosis, understands and agrees to treatment plan. Anticipatory guidance given. Patient agrees to follow-up as directed and is aware of reasons to seek care at the emergency department. Portions of this record may have been created with voice recognition software Level of Care: Express Care Visit Vital Signs Vital signs: Vital Signs
[2023-07-14 13:31] VITALS: BP 106/69; PULSE 91
== END 2023-07-14 14:17 | disposition home or self-care (01) ==
PROVIDERS: Emergency Provider Nurse Practitioner Family; PCP Family Medicine
DX: R53.1 Weakness (principal); N80.9 Endometriosis, unspecified
CPT/HCPCS: 99211; G0463

== ENCOUNTER 2023-11-22 01:07 | Emergency (ER) | payer OTHER, SELFPAY ==
[2023-11-22 01:13] VITALS: BP 128/88; PULSE 100; RESP 16; TEMP 36.9; O2SAT 100
--- NOTE | 2023-11-22 03:11 | ED.GENADULT ---
HPI - General Adult General Chief complaint: Unspecified Stated complaint: Tingling in bottom of knees Time Seen by Provider: 11/22/23 02:31 History of Present Illness HPI narrative: 37-year-old female with history of anxiety presenting to the emergency room with chief complaint of tingling in both her feet. Started the top of her left foot and became bilateral, ascending to the knees. States that she feels like she is having anxiety attack and took her hydroxyzine at home which did not alleviate the symptoms prompting her to seek medical attention. She had recent blood work obtained this week which shows normal electrolytes aside from mild hyponatremia. She had normal B12 and folate levels. Was otherwise in her normal state of health and has not had anything similar to this happened in the past. Denies any trauma or recent injuries. Did scrape herself on the top of the foot recently on metal but did not break the skin is up-to-date on her tetanus. Denies any significant alcohol intake, recreational substances such nitrous oxide or inhalation agents. Related Data Home Medications Medication Instructions Recorded Confirmed benzonatate 200 mg capsule 200 mg PO DIRECTED 07/14/23 07/14/23 penicillin V potassium 500 mg 500 mg DIRECTED 07/14/23 07/14/23 tablet Allergies Allergy/AdvReac Type Severity Reaction Status Date / Time No Known Allergies Allergy Verified 11/22/23 03:26 Review of Systems Review of Systems: As reviewed above in [facility] Past Medical History Medical History Anxiety Depression Endometriosis History of ectopic Hx of migraines Surgical History Surgical History H/O unilateral salpingectomy History of delivery History of hysteroscopy D & C Family History Family History Father Chronic obstructive pulmonary disease Social History Social History Smoking status: Never smoker Alcohol intake: never Substance use: never Substance use type: prescription drug Living arrangements: with family Occupation/Education: occupation Gender identity (if verbalized by the patient): Female Spiritual care concerns: No Exam Narrative: GENERAL: Very anxious appearing, tearful, not any acute distress HEAD: [Normocephalic, atraumatic.] EYES: [PERRLA and EOMI.] ENT: Nares clear, no rhinorrhea or epistaxis. Mucous membranes moist. NECK: Supple. CHEST: [Clear to auscultation. No respiratory distress.] HEART: [Regular rate and rhythm]. No murmur heard. [Normal peripheral pulses.] ABDOMEN: [Soft, nondistended], [nontender], [No rigidity or guarding] EXTREMITIES: Normal range of motion. [No edema.] No edema, no palpable cords in the bilateral knees, no popliteal masses, no spasming or muscle cramping noted. Full plantar and dorsiflexion. SKIN: Warm, dry, no rash. NEURO: [No focal deficits]. Alert and oriented [x3.] PSYCH: Anxious, otherwise conversing in full sentences and cooperative Course Vital Signs Vital signs: Vital Signs Temperature 36.9 C 11/22/23 01:13 Pulse Rate 100 11/22/23 01:13 Respiratory Rate 16 11/22/23 01:13 Blood Pressure 128/88 11/22/23 01:13 Pulse Oximetry 100 11/22/23 01:13 Oxygen Delivery Room Air 11/22/23 01:13 Temperature 36.9 C 11/22/23 01:13 Pulse Rate 100 11/22/23 01:13 Respiratory Rate 16 11/22/23 01:13 Blood Pressure 128/88 11/22/23 01:13 Pulse Oximetry 100 11/22/23 01:13 Oxygen Delivery Room Air 11/22/23 01:13 Medical Decision Making [facility] Narrative Medical decision making narrative: 37-year-old female with history of anxiety presenting for vague symptoms including onset of bilateral lower extremity paresthesias slowly ove
[2023-11-22 03:35] LABS: Basophils Absolute Auto 0.1 K/mm3 (0.0-0.1); Basophils Percent Auto 0.9 % (0.2-1.2); Eosinophils Absolute Auto 0.1 K/mm3 (0-0.3); Eosinophils Percent Auto 0.9 % (0-4.4); Hemoglobin 12.8 g/dL (12.0-15.0); Immature Granulocyte Absolute 0.01 K/mm3 (0.00-0.031); Immature Granulocyte Percent A 0.2 % (0-0.5); Lymphocytes Absolute Auto 1.36 K/mm3 (0.9-3.2); Lymphocytes Percent Auto 24.4 % (18.3-44.2); Mean Corpuscular HGB Conc 32.8 g/dl (32-36); Mean Corpuscular Hemoglobin 29.6 pg (26-34); Mean Corpuscular Volume 90.3 fl (80-100); Mean Platelet Volume 9.1 fl (7.4-10.4); Monocytes Absolute Auto 0.3 K/mm3 (0.1-0.6); Monocytes Percent Auto 5.9 % (2.6-8.5); Neutrophils Absolute Auto 3.8 K/mm3 (1.3-6.7); Neutrophils Percent Auto 67.7 % (45.5-73.1); Platelet Count Result 351 k/mm3 (150-375); Red Blood Count 4.32 M/mm3 (4.2-5.4); Red Cell Distribution Width 14.2 % (11.5-14.5); White Blood Count 5.6 K/mm3 (4.5-10.0)
[2023-11-22 03:37] LABS: Add Urine Microscopic? NO; Appearance Urine Clear (Clear); Bilirubin Urine Negative (Negative); Blood Urine Negative (Negative); Color Urine Yellow (Yellow); Glucose Urine UA Negative (Negative); Ketones Urine Negative (Negative); Leukocyte Esterase Ur Negative LEU/UL (Negative); Nitrate Urine Negative (Negative); Protein Urine Negative (Negative); Specific Grav Ur 1.008 (1.001-1.035); Urobilinogen Urine 0.2 mg/dL (<2.0); pH Urine 7.5 (5.0-9.0)
[2023-11-22 03:51] LABS: Alanine Aminotransferase 13 U/L (6-35); Albumin Level 4.3 g/dL (3.5-5.1); Alkaline Phosphatase 77 U/L (38-126); Anion Gap 6 mmol/L (4-12); Aspartate Amino Transferase 25 U/L (14-36); Bilirubin,Total 0.4 mg/dL (0.2-1.3); Blood Urea Nitrogen 9 mg/dL (7-17); Calcium 9.1 mg/dL (8.4-10.2); Carbon Dioxide 27 mmol/L (22-30); Chloride 105 mmol/L (98-107); Estimated CRCL calculation 98 ml/min; Estimated Glomerular Filt Rate > 60; Glucose 110 mg/dL (65-110); Magnesium 1.9 mg/dL (1.6-2.3); Potassium 3.9 mmol/L (3.4-5.0); Sodium 138 mmol/L (137-145)
[2023-11-22 04:21] LABS: Creatine Kinase 72 U/L (30-135)
[2023-11-22 04:36] VITALS: BP 100/73; PULSE 82; RESP 17; O2SAT 97
[2023-11-22 14:30] LABS: BEDSIDEPREGUCG Negative (Negative)
== END 2023-11-22 04:42 | disposition home or self-care (01) ==
PROVIDERS: Emergency Provider Student in an Organized Health Care Education/Training Program; PCP Family Medicine
DX: R20.2 Paresthesia of skin (principal); F41.9 Anxiety disorder, unspecified; Z90.79 Acquired absence of other genital organ(s); Z79.899 Other long term (current) drug therapy
CPT/HCPCS: 36415; 80053; 81003; 81025; 82550; 83735; 85025; 99283